=== PATIENT | female | born 1970 | race Caucasian/White ===

== ENCOUNTER 2018-09-24 09:18 | Day surgery (SDC) | payer OTHER, SELFPAY ==
[2018-09-24 09:46] VITALS: BP 150/89; PULSE 65; RESP 15; TEMP 37.3; O2SAT 95; BMI 35.5
[2018-09-24] MEDS: SODIUM CHLORIDE 0.9% 1,000 ML 100 ML IV (10:00)
--- NOTE | 2018-09-24 10:47 | PM.HP.1 ---
History of Present Illness Date Patient Seen: 09/24/18 Time Patient Seen: 10:47 Chief complaint: [id number] Colonoscopy Narrative: Wonderful and very healthy 48-year-old lady here for her 1st screening colonoscopy. She denies any problems or symptoms related to the function of her GI tract. She reports she needs a colonoscopy as part of the Health maintenance program. Patient History Social History household members: spouse Family & Social History Social History: household members spouse Meds Home Medications Medication Instructions Recorded Confirmed Type ascorbic acid-collagen [Collagen 4 tab PO DAILY 09/24/18 09/24/18 History Plus Vitamin C] biotin 5,000 mcg PO DAILY 09/24/18 09/24/18 History cetirizine 10 mg PO DAILY 09/24/18 09/24/18 History cholecalciferol (vitamin D3) 1,000 unit PO DAILY 09/24/18 09/24/18 History [Vitamin D3] melatonin 10 mg PO BEDTIME 09/24/18 09/24/18 History methylsulfonylmethane [MSM] 1,000 mg PO DAILY 09/24/18 09/24/18 History eikryhfz-dpy-qpkt-FA-lutein 1 tab PO DAILY 09/24/18 09/24/18 History [Centrum Silver Women] Allergies Allergy/AdvReac Type Severity Reaction Status Date / Time No Known Drug Allergies Allergy Verified 09/24/18 09:36 Review of Systems Review of Systems All systems reviewed & are unremarkable except as noted in HPI and below Exam Vital Signs (past 8 hours): - 09/24/18 09:46 Temperature 99.2 F Pulse Rate 65 Respiratory Rate 15 Blood Pressure 150/89 H Pulse Oximetry 95 Oxygen Delivery Method Room Air Narrative Exam Narrative: Very pleasant well-nourished well-developed lady in no distress HEENT: Normocephalic and atraumatic, pupils equal round reactive to light accommodation with anicteric sclera Lungs: Clear auscultation bilaterally Heart: Regular rate and rhythm without murmur rub or gallop Abdomen: Soft, nontender, active bowel sounds Extremities: Warm well-perfused without edema Assessment & Plan Assessment & Plan narrative: Pleasant and healthy lady here for her 1st screening colonoscopy. Her only risk today is BMI 35. We discussed the risks and benefits of the procedure today and she has expressed a desire to complete it today.
--- NOTE | 2018-09-24 10:49 | SUR.OPER ---
GLASSES , LABELED BAG, TO PACU WITH PATIENT.
[2018-09-24] MEDS: MIDAZOLAM 5 MG/5 ML VIAL IV (11:00)
[2018-09-24] MEDS: fentaNYL 250 MCG/5 ML INJ IV (11:01)
--- NOTE | 2018-09-24 11:09 | PM.OP.1 ---
Operative Date/Time/Diagnoses Date of procedure: 09/24/18 Time of procedure: 11:09 Pre-op diagnosis: Screening Post-op diagnosis: same Procedure & Clinicians Procedure: Colonoscopy to the cecum Same procedure as scheduled: Yes Indications: No prior colonoscopy Surgeon: Alayna Barger Anesthesia Type: Sedation (Versed 7 mg; fentanyl 200 mcg) Operative Notes Findings: 1. Excellent prep 2. No polyps or mass lesions 3. No AV malformations 4. Minimal diverticulosis limited the sigmoid region 5. Grade 1 internal hemorrhoids 6. Essentially normal colonoscopy for age Closure Type: not applicable Specimen(s): none sent Procedure in detail: After obtaining informed consent, the patient was brought to the GI suite and placed in the left lateral decubitus position on the examination table. After placement of appropriate monitors, the patient was given incremental doses of Versed and Fentanyl until an appropriate level of sedation was achieved. A time out was held per SCOAP protocol. A digital rectal examination was performed and did not reveal any masses or obstructing lesions. The colonoscope was gently passed into the patient's anus and the entire colon navigated to the level of the cecum with minimal difficulty. Once in the cecum, the scope was withdrawn being sure to go before and beyond all mucosal folds and prominences and get an excellent examination. The findings are noted above. At the level of the rectal vault, the scope was retroflexed and the internal anal canal was examined. The scope was straightened and air aspirated from the colon. The instrument was removed from the patient's body and the procedure was concluded. The patient was allowed to awaken from sedation without difficulty and taken to the post-anesthesia care unit in good condition. Total sedation time was 20 min Total withdrawal time was 9 min Complications: none Condition: stable Disposition: PACU Plan for aftercare: 1. Discharge to home 2. Plan for next colonoscopy in 10 years or as clinically indicated
[2018-09-24 11:11] VITALS: BP 116/71; PULSE 77; RESP 16; TEMP 36.5; O2SAT 96
[2018-09-24 11:16] VITALS: BP 112/75; PULSE 60; RESP 17; O2SAT 95
[2018-09-24 11:21] VITALS: BP 114/78; PULSE 77; RESP 17; TEMP 36.4; O2SAT 96
== END 2018-09-24 11:53 | disposition home or self-care (01) ==
PROVIDERS: PCP Family Medicine; Visit Provider Surgery
PROC: 0DJD8ZZ Inspection of Lower Intestinal Tract, Via Natural or Artificial Opening Endoscopic (ICD-10-PCS; CPT 45378; principal; 2018-09-24 10:45)
DX: Z12.11 Encounter for screening for malignant neoplasm of colon (principal); K57.30 Diverticulosis of large intestine without perforation or abscess without bleeding; K64.0 First degree hemorrhoids
CPT/HCPCS: 45378; 99152; J2250; J3010

== ENCOUNTER → 2019-09-23 16:36 | Outpatient (CLI) | payer OTHER, SELFPAY ==
--- NOTE | 2019-09-23 16:39 | DI.MG.S_ITS ---
BILATERAL DIGITAL SCREENING MAMMOGRAM 3D/2D WITH CAD: 09/23/2019 CLINICAL: Routine screening. Comparison is made to exams dated: 09/10/2016 mammogram, 09/17/2017 mammogram, and 09/21/2018 mammogram - [facility]. The tissue of both breasts is heterogeneously dense. This may lower the sensitivity of mammography. Current study was also evaluated with a Computer Aided Detection (CAD) system. No significant masses, calcifications, or other findings are seen in either breast. There has been no significant interval change. IMPRESSION: NEGATIVE There is no mammographic evidence of malignancy. A 1 year screening mammogram is recommended. This exam was interpreted at Station ID: [id number]. NOTE: For mammograms, a report in lay terms will be sent to the patient. Approximately 15% of breast malignancies will not be visualized mammographically. In the management of a palpable breast mass, a negative mammogram must not discourage biopsy of a clinically suspicious lesion. Electronically Signed By: Kvng ge/rhea:09/23/2019 17:47:30 letter sent: Normal Exam ACR BI-RADS Category 1: Negative [id number]
== END ==
PROVIDERS: PCP Family Medicine; Referring Provider Family Medicine; Visit Provider Family Medicine
DX: Z12.31 Encounter for screening mammogram for malignant neoplasm of breast (principal)
CPT/HCPCS: 77063; 77067

== ENCOUNTER → 2020-09-25 10:46 | Outpatient (CLI) | payer OTHER, SELFPAY ==
--- NOTE | 2020-09-25 | DI.MG.S_ITS ---
BILATERAL DIGITAL SCREENING MAMMOGRAM 3D/2D WITH CAD: 09/25/2020 CLINICAL: Routine screening. Comparison is made to exams dated: 09/23/2019 mammogram - [facility], 09/21/2018 mammogram, and 09/17/2017 mammogram - [facility]. The tissue of both breasts is heterogeneously dense. This may lower the sensitivity of mammography. Current study was also evaluated with a Computer Aided Detection (CAD) system. There are benign calcifications in both breasts. No significant masses, calcifications, or other findings are seen in either breast. There has been no significant interval change. IMPRESSION: BENIGN There is no mammographic evidence of malignancy. A 1 year screening mammogram is recommended. This exam was interpreted at Station ID: [id number]. NOTE: For mammograms, a report in lay terms will be sent to the patient. Approximately 15% of breast malignancies will not be visualized mammographically. In the management of a palpable breast mass, a negative mammogram must not discourage biopsy of a clinically suspicious lesion. Electronically Signed By: Gary monae/rhea:09/25/2020 13:25:32 letter sent: Normal Exam ACR BI-RADS Category 2: Benign Finding(s) 3342F
== END ==
PROVIDERS: PCP Family Medicine; Referring Provider Family Medicine; Visit Provider Family Medicine
DX: Z12.31 Encounter for screening mammogram for malignant neoplasm of breast (principal)
CPT/HCPCS: 77063; 77067

== ENCOUNTER 2020-10-16 09:45 | Outpatient (RCR) | payer OTHER, SELFPAY ==
--- NOTE | 2020-08-30 12:45 | PT.OPPOC ---
Physical, Occupational & Speech Therapy At [facility] Current Diagnoses Pain in unspecified hip (08/30/20) Pain in unspecified knee (08/30/20) Iliotibial band syndrome, unspecified leg (08/30/20) Lower abdominal pain, unspecified (08/30/20) Visit Care Team Role Provider Type Suzy Coughlin DO Attending Provider Non-Staff Primary Care Provider Referring Provider Specialty: Medical Address: [address] [place] [address], [id number] Email: Plan Of Care PT-OP-T Assessment and Plan Start: 08/30/20 16:33 Freq: Status: Active Protocol: Document 08/30/20 12:00 DCW (Rec: 08/31/20 09:41 DCW [id number]) Physical Therapy Assessment Rehab Potential Rehabilitation Potential Good Evaluation Complexity Number of Personal Factors/Comorbidities 1-2 Number of Body Systems Impaired 1-2 Clinical Presentation at Evaluation Stable Impairments Impairments Functional Activities, Functional Mobility,Pain,ROM, Soft Tissue Mobility,Tone Goals Three Impairment Severe tone through bilateral psoas Band Ripsaw Operator Goal (LTG) Pt to display at worst moderate tone bilaterally in hip flexors in order to improve lumbar positioning and ROM LTG Duration 10/28/20 Two Impairment Pt presents with right anterior pelvic rotation Custodial Goal (LTG) Pt to present with neutral pelvic rotation for three visits in a row LTG Duration 10/28/20 One Impairment Pt does not have an appropriate home exercise program Short Term Goal (STG) Pt to be independent and compliant with an appropriate HEP STG Duration 09/27/20 Assessment Summary Assessment Pt presents with signs and symptoms or increased muscle tone along her hips and low back resulting in an asymmetrical pelvis alignment and significant stiffness. Pt did not appear to have any positive tests relating to her spine or nerve entrapment, and just presents with moderate-severe tone throughout. Pt should benefit from skilled therapy focusing on flexibility and decreasing tone, which should lead to decreased pain, improved mobility, and increased activity tolerance. Pt already doing fairly well with stretching at home, however was educated on the importance of holding stretches long enough. Attempted to use MET to reposition pelvis, pt tolerated well, however with severe tone in psoas, will likely return to previous position by the time she returns for her next visit. Overall,pt demonstrates good LE strength in all planes. Physical Therapy Plan Frequency and Duration Frequency of Treatment 2x/Week Duration of Treatment Two months Plan of Care Start Date 08/30/20 Plan of Care End Date 10/28/20 Therapeutic Interventions Therapeutic Interventions Home Exercise Program,Joint Mobilizations,Manual Therapy, Patient/Caregiver Education, Self-Care/Home Management,Soft Tissue Mobilization, Therapeutic Activities, Therapeutic Exercises Modalities Cold Pack/Ice Massage,Electric Stimulation,Hot Packs, Ultrasound Next Visit Focus/Plan Next Note Type Treatment Note Next Visit Plan STM, MET, Flexibility Plan of Care Dates Plan of Care Start Date 08/30/20 Plan of Care End Date 10/28/20 Electronically Signed by: Jemal Pham, PT 08/31/20 0943 Please Sign and Return: I have reviewed this Plan of Care and certify that the skilled therapy services above are required to meet the patient?s needs. Physician Signature Date Printed Name and Credentials Clinical Instructor Signature Printed Name and Credentials
--- NOTE | 2020-08-30 12:45 | PT.OIE ---
Current Diagnoses Pain in unspecified hip (08/30/20) Pain in unspecified knee (08/30/20) Iliotibial band syndrome, unspecified leg (08/30/20) Lower abdominal pain, unspecified (08/30/20) Visit Care Team Role Provider Type Suzy Coughlin DO Attending Provider Non-Staff Primary Care Provider Referring Provider Specialty: Medical Address: [address] [place] [address], [id number] Email: Physical Therapy Initial Evaluation PT-OP-A Visit Information Start: 08/30/20 16:33 Freq: Status: Active Protocol: Document 08/30/20 12:00 DCW (Rec: 08/30/20 16:45 DCW [id number]) Out-Patient Physical Therapy Visit Information Visit Information Visit Type Initial Evaluation Visit Start Time 12:00 Visit Stop Time 12:45 Total Visit Minutes 45 Visit Number 1 Number of WILDLIFE TECHNICIAN Visits 0 Evaluation Information Evaluation Date 08/30/20 PT-OP-B Current Condition Start: 08/30/20 16:33 Freq: Status: Active Protocol: Document 08/30/20 12:00 DCW (Rec: 08/30/20 16:45 DCW [id number]) Current Condition History of Current Condition Onset Date Multi-year history Current Complaints Super tight in hips, low back. History of Current Condition Pt is a 53 year old female presenting with a long- standing history of low back and bilateral hip pain. Pt notes she does not recall any specific injury, just notes she has always been tight. Reports she already spends a lot of time throughout the day stretching her hamstrings, adductors, IT band, hip flexors, and piriformis, but admits she may not hold the stretch long enough. Pt reports she sees a chriopractor every other week, which occasionally helps some . Also notes her biggest complaint is a pinching in her anterior hip with hip flexion past 100?. Pt reports feeling much better when she is up moving around, but feels like everything tightens up when she stops. Also notes it feels like it is bruised when she palpates along her own ASIS. PT-OP-C Subjective Start: 08/30/20 16:33 Freq: Status: Active Protocol: Document 08/30/20 12:00 DCW (Rec: 08/30/20 17:57 DCW [id number]) OP-PT Subjective Patient Comments Patient Comments I've always been tight, I try to stretch out, but it just never seems to help. Patient Questionnaires Lower Extremity Functional Scale LEFS Score 54/80 = 67.5% OP-PT Pain Assessment Pain Assessment Grid Paper Pain Assessment Grid Completed Yes Location Bilateral Lateral Leg Intensity 4 Scale Used Numeric (0 - 10) Lower Back Intensity 5 Scale Used Numeric (0 - 10) PT-OP-F Manual Assessment Start: 08/30/20 16:33 Freq: Status: Active Protocol: Document 08/30/20 12:00 DCW (Rec: 08/30/20 17:57 DCW [id number]) Manual Assessments Soft Tissue Assessment Soft Tissue Mobility Assessment Severe tone with tenderness to palpation 3/4: Wincing and withdraw: bilateral Psoas Moderate tone with tenderness to palpation 3/4: Wincing and withdraw: bilateral ITB, adductors, hamstrings, piriformis. Joint Mobility Assessment Joint Mobility Assessment R anterior pelvic rotation PT-OP-K Range of Motion Start: 08/30/20 16:33 Freq: Status: Active Protocol: Document 08/30/20 12:00 DCW (Rec: 08/30/20 17:57 DCW [id number]) Lumbar Spine Range of Motion Lumbar Spine Active Degrees Testing Position Standing Flexion 28 Extension 5 ROM Limitations Soft Tissue Tightness,Muscle Tone PT-OP-L Special Tests Start: 08/30/20 16:33 Freq: Status: Active Protocol: Document 08/30/20 12:00 DCW (Rec: 08/30/20 17:57 DCW [id number]) Special Tests Lumbar Spine Special Tests Vertical Spine Loading Test Results Negative JAJA Test Results Negative Straight Leg Raise Test Results Negative Slump Test Results Hamstring tightness Manual Traction Test Results Pain relief Compression Test Results Negative A-P Shearing Test Results Negative PT-OP-M Strength Start: 08/30/20 16:33 Freq: Status: Active Protocol: Document 08/30/20 12:00 DCW (Rec: 08/30/20 17:57 DCW [id number]) Hip Strength Hip Manual Muscle Testing Bilateral Flexion (L2) 5 Normal Extension (S1) 5 Normal Abduction 5 Normal Adduction 5 Normal External Rotation 5 Normal Internal Rotation 5 Normal Knee Strength Knee Manual Muscle Testing Bilateral Flexion (S2) 5 Normal Extension (L3) 5 Normal PT-OP-Q Treatments Start: 08/30/20 16:33 Freq: Status: Active Protocol: Document 08/30/20 12:00 DCW (Rec: 08/31/20 09:42 DCW [id number]) Manual Therapy Treatment Joint Mobilizations 1 Joint Pelvic rotation Direction R posterior, L anterior shift Body Position Supine Comments MET - Resisted right LE extension, resisted left LE flexion PT-OP-T Assessment and Plan Start: 08/30/20 16:33 Freq: Status: Active Protocol: Document 08/30/20 12:00 DCW (Rec: 08/31/20 09:41 DCW [id number]) Physical Therapy Assessment Rehab Potential Rehabilitation Potential Good Evaluation Complexity Number of Personal Factors/Comorbidities 1-2 Number of Body Systems Impaired 1-2 Clinical Presentation at Evaluation Stable Impairments Impairments Functional Activities, Functional Mobility,Pain,ROM, Soft Tissue Mobility,Tone Goals Three Impairment Severe tone through bilateral psoas Skilled Nursing Goal (LTG) Pt to display at worst moderate tone bilaterally in hip flexors in order to improve lumbar positioning and ROM LTG Duration 10/28/20 Two Impairment Pt presents with right anterior pelvic rotation Skilled Nursing Goal (LTG) Pt to present with neutral pelvic rotation for three visits in a row LTG Duration 10/28/20 One Impairment Pt does not have an appropriate home exercise program Short Term Goal (STG) Pt to be independent and compliant with an appropriate HEP STG Duration 09/27/20 Assessment Summary Assessment Pt presents with signs and symptoms or increased muscle tone along her hips and low back resulting in an asymmetrical pelvis alignment and significant stiffness. Pt did not appear to have any positive tests relating to her spine or nerve entrapment, and just presents with moderate-severe tone throughout. Pt should benefit from skilled therapy focusing on flexibility and decreasing tone, which should lead to decreased pain, improved mobility, and increased activity tolerance. Pt already doing fairly well with stretching at home, however was educated on the importance of holding stretches long enough. Attempted to use MET to reposition pelvis, pt tolerated well, however with severe tone in psoas, will likely return to previous position by the time she returns for her next visit. Overall,pt demonstrates good LE strength in all planes. Physical Therapy Plan Frequency and Duration Frequency of Treatment 2x/Week Duration of Treatment Two months Plan of Care Start Date 08/30/20 Plan of Care End Date 10/28/20 Therapeutic Interventions Therapeutic Interventions Home Exercise Program,Joint Mobilizations,Manual Therapy, Patient/Caregiver Education, Self-Care/Home Management,Soft Tissue Mobilization, Therapeutic Activities, Therapeutic Exercises Modalities Cold Pack/Ice Massage,Electric Stimulation,Hot Packs, Ultrasound Next Visit Focus/Plan Next Note Type Treatment Note Next Visit Plan STM, MET, Flexibility
--- NOTE | 2020-09-01 10:38 | PT.OTN ---
Current Diagnoses Pain in unspecified hip (09/01/20) Pain in unspecified knee (09/01/20) Iliotibial band syndrome, unspecified leg (09/01/20) Lower abdominal pain, unspecified (09/01/20) Physical Therapy Treatment Note PT-OP-A Visit Information Start: 08/30/20 16:33 Freq: Status: Active Protocol: Document 09/01/20 09:48 SP (Rec: 09/01/20 10:53 SP [id number]) Out-Patient Physical Therapy Visit Information Visit Information Visit Type Treatment Note Visit Note YAKELIN Nicole attended, observation only during tx. Visit Start Time 09:48 Visit Stop Time 10:38 Total Visit Minutes 50 Visit Number 2 Number of GAS LINE INSTALLER Visits 1 PT-OP-B Current Condition Start: 08/30/20 16:33 Freq: Status: Active Protocol: Document 08/30/20 12:00 DCW (Rec: 08/30/20 16:45 DCW [id number]) Current Condition History of Current Condition Onset Date Multi-year history Current Complaints Super tight in hips, low back. History of Current Condition Pt is a 53 year old female presenting with a long- standing history of low back and bilateral hip pain. Pt notes she does not recall any specific injury, just notes she has always been tight. Reports she already spends a lot of time throughout the day stretching her hamstrings, adductors, IT band, hip flexors, and piriformis, but admits she may not hold the stretch long enough. Pt reports she sees a chriopractor every other week, which occasionally helps some . Also notes her biggest complaint is a pinching in her anterior hip with hip flexion past 100?. Pt reports feeling much better when she is up moving around, but feels like everything tightens up when she stops. Also notes it feels like it is bruised when she palpates along her own ASIS. PT-OP-C Subjective Start: 08/30/20 16:33 Freq: Status: Active Protocol: Document 09/01/20 09:48 SP (Rec: 09/01/20 10:53 SP [id number]) OP-PT Subjective Patient Comments Patient Comments Pt stated I was little sore from palpations after last tx but was helpful feedback for holding stretches longer. I feel need some deeper massage into ITB to get main tightness to deminish feels is the issue. PT-OP-F Manual Assessment Start: 08/30/20 16:33 Freq: Status: Active Protocol: Document 08/30/20 12:00 DCW (Rec: 08/30/20 17:57 DCW [id number]) Manual Assessments Soft Tissue Assessment Soft Tissue Mobility Assessment Severe tone with tenderness to palpation 3/4: Wincing and withdraw: bilateral Psoas Moderate tone with tenderness to palpation 3/4: Wincing and withdraw: bilateral ITB, adductors, hamstrings, piriformis. Joint Mobility Assessment Joint Mobility Assessment R anterior pelvic rotation PT-OP-K Range of Motion Start: 08/30/20 16:33 Freq: Status: Active Protocol: Document 08/30/20 12:00 DCW (Rec: 08/30/20 17:57 DCW [id number]) Lumbar Spine Range of Motion Lumbar Spine Active Degrees Testing Position Standing Flexion 28 Extension 5 ROM Limitations Soft Tissue Tightness,Muscle Tone PT-OP-L Special Tests Start: 08/30/20 16:33 Freq: Status: Active Protocol: Document 08/30/20 12:00 DCW (Rec: 08/30/20 17:57 DCW [id number]) Special Tests Lumbar Spine Special Tests Vertical Spine Loading Test Results Negative JAJA Test Results Negative Straight Leg Raise Test Results Negative Slump Test Results Hamstring tightness Manual Traction Test Results Pain relief Compression Test Results Negative A-P Shearing Test Results Negative PT-OP-M Strength Start: 08/30/20 16:33 Freq: Status: Active Protocol: Document 08/30/20 12:00 DCW (Rec: 08/30/20 17:57 DCW [id number]) Hip Strength Hip Manual Muscle Testing Bilateral Flexion (L2) 5 Normal Extension (S1) 5 Normal Abduction 5 Normal Adduction 5 Normal External Rotation 5 Normal Internal Rotation 5 Normal Knee Strength Knee Manual Muscle Testing Bilateral Flexion (S2) 5 Normal Extension (L3) 5 Normal PT-OP-Q Treatments Start: 08/30/20 16:33 Freq: Status: Active Protocol: Document 09/01/20 09:48 SP (Rec: 09/01/20 10:53 SP [id number]) Therapeutic Exercises Supine Exercises LE stretching Supine Exercise Name HS, ITB Equipment Used strap Reps/Minutes 45-60 sec x3-5 reps Other Exercises ball roll wall/ floor Other Exercise Name ITB, TFL, HS, calf (floor/ standing at wall) Side bilateral Reps/Minutes time to tolerance Comments good response foam rolling LEs Other Exercise Name Quad, TFL, HS, ITB Side bilateral Equipment Used foam roller on floor Reps/Minutes time tolerance Comments good response- cued proper trunk/ UE alignment form/ safety LB and wrists Manual Therapy Treatment Soft Tissue Mobilization ITB manual and instrument Body Location B ITB, adductor Mobilization Type Cross-Friction,Instrument Assisted,Strumming,Sustained Pressure Intensity/Depth Moderate Body Position Sidelying Comments manual and instruction on self application of STMs strumming and pin with MWM (adductors) for relief of excessive tightness. Cued awareness of tolerance, not over do and cause bruising for flexibility with verbal confirmation. Self-Care/Home Management Treatment Education Patient Education Home Exercise Program,Pain Management,Posture,Safety Other Education education proper form foamroll , ball roll LEs to decrease deep tightness, pain to improved flexibility and quality pain free mobillitiy. PT-OP-T Assessment and Plan Start: 08/30/20 16:33 Freq: Status: Active Protocol: Document 09/01/20 09:48 SP (Rec: 09/01/20 10:53 SP [id number]) Physical Therapy Assessment Goals Three Impairment Severe tone through bilateral psoas Compensation Business Partner Goal (LTG) Pt to display at worst moderate tone bilaterally in hip flexors in order to improve lumbar positioning and ROM LTG Duration 10/28/20 Two Impairment Pt presents with right anterior pelvic rotation Retirement Goal (LTG) Pt to present with neutral pelvic rotation for three visits in a row LTG Duration 10/28/20 One Impairment Pt does not have an appropriate home exercise program Short Term Goal (STG) Pt to be independent and compliant with an appropriate HEP STG Duration 09/27/20 Assessment Summary Assessment Tx focused on flexibility to decrease ITb and adductor pain having for years. Reviewed stretching and foam rolling has been doing on own, provided cuing for tolerance and not over do, then use of stick rolling, racquetball at wall/ floor needed and instrument use per pt request to ITB and self sustained compression to proximal adductors with hip IR/ ER and all good response was little sore but very helpful, what was hoping for. Physical Therapy Plan Frequency and Duration Frequency of Treatment 2x/Week Duration of Treatment Two months Plan of Care Start Date 08/30/20 Plan of Care End Date 10/28/20 Therapeutic Interventions Therapeutic Interventions Home Exercise Program,Joint Mobilizations,Manual Therapy, Patient/Caregiver Education, Self-Care/Home Management,Soft Tissue Mobilization, Therapeutic Activities, Therapeutic Exercises Modalities Cold Pack/Ice Massage,Electric Stimulation,Hot Packs, Ultrasound Next Visit Focus/Plan Next Note Type Treatment Note Next Visit Plan Assess response to manual, self STMs using foamroller, rolling stick, instrument and reviewed stretching holds for flexibility benefits and pain control looking for. Next tx assess if pelvic realignment beneficial and glut/ core are components missing? Continiue per PT POC: MET, Flexibility
--- NOTE | 2020-09-05 12:00 | PT.OTN ---
Current Diagnoses Pain in unspecified hip (09/05/20) Pain in unspecified knee (09/05/20) Iliotibial band syndrome, unspecified leg (09/05/20) Lower abdominal pain, unspecified (09/05/20) Physical Therapy Treatment Note PT-OP-A Visit Information Start: 08/30/20 16:33 Freq: Status: Active Protocol: Document 09/05/20 11:19 DCW (Rec: 09/05/20 12:00 DCW [id number]) Out-Patient Physical Therapy Visit Information Visit Information Visit Type Treatment Note Visit Start Time 11:19 Visit Stop Time 12:00 Total Visit Minutes 41 Visit Number 3 Number of SHOE REPAIR COBBLER Visits 0 Evaluation Information Evaluation Date 08/30/20 PT-OP-B Current Condition Start: 08/30/20 16:33 Freq: Status: Active Protocol: Document 08/30/20 12:00 DCW (Rec: 08/30/20 16:45 DCW [id number]) Current Condition History of Current Condition Onset Date Multi-year history Current Complaints Super tight in hips, low back. History of Current Condition Pt is a 53 year old female presenting with a long- standing history of low back and bilateral hip pain. Pt notes she does not recall any specific injury, just notes she has always been tight. Reports she already spends a lot of time throughout the day stretching her hamstrings, adductors, IT band, hip flexors, and piriformis, but admits she may not hold the stretch long enough. Pt reports she sees a chriopractor every other week, which occasionally helps some . Also notes her biggest complaint is a pinching in her anterior hip with hip flexion past 100?. Pt reports feeling much better when she is up moving around, but feels like everything tightens up when she stops. Also notes it feels like it is bruised when she palpates along her own ASIS. PT-OP-C Subjective Start: 08/30/20 16:33 Freq: Status: Active Protocol: Document 09/05/20 11:19 DCW (Rec: 09/05/20 12:00 DCW [id number]) OP-PT Subjective Patient Comments Patient Comments Pt feeling pretty good, I was working on my stretching this morning. Note she was a little tender after her appointment Friday. PT-OP-F Manual Assessment Start: 08/30/20 16:33 Freq: Status: Active Protocol: Document 08/30/20 12:00 DCW (Rec: 08/30/20 17:57 DCW [id number]) Manual Assessments Soft Tissue Assessment Soft Tissue Mobility Assessment Severe tone with tenderness to palpation 3/4: Wincing and withdraw: bilateral Psoas Moderate tone with tenderness to palpation 3/4: Wincing and withdraw: bilateral ITB, adductors, hamstrings, piriformis. Joint Mobility Assessment Joint Mobility Assessment R anterior pelvic rotation PT-OP-K Range of Motion Start: 08/30/20 16:33 Freq: Status: Active Protocol: Document 08/30/20 12:00 DCW (Rec: 08/30/20 17:57 DCW [id number]) Lumbar Spine Range of Motion Lumbar Spine Active Degrees Testing Position Standing Flexion 28 Extension 5 ROM Limitations Soft Tissue Tightness,Muscle Tone PT-OP-L Special Tests Start: 08/30/20 16:33 Freq: Status: Active Protocol: Document 08/30/20 12:00 DCW (Rec: 08/30/20 17:57 DCW [id number]) Special Tests Lumbar Spine Special Tests Vertical Spine Loading Test Results Negative JAJA Test Results Negative Straight Leg Raise Test Results Negative Slump Test Results Hamstring tightness Manual Traction Test Results Pain relief Compression Test Results Negative A-P Shearing Test Results Negative PT-OP-M Strength Start: 08/30/20 16:33 Freq: Status: Active Protocol: Document 08/30/20 12:00 DCW (Rec: 08/30/20 17:57 DCW [id number]) Hip Strength Hip Manual Muscle Testing Bilateral Flexion (L2) 5 Normal Extension (S1) 5 Normal Abduction 5 Normal Adduction 5 Normal External Rotation 5 Normal Internal Rotation 5 Normal Knee Strength Knee Manual Muscle Testing Bilateral Flexion (S2) 5 Normal Extension (L3) 5 Normal PT-OP-Q Treatments Start: 08/30/20 16:33 Freq: Status: Active Protocol: Document 09/05/20 11:19 DCW (Rec: 09/05/20 12:00 DCW [id number]) Therapeutic Exercises Supine Exercises LE stretching Supine Exercise Name HS, ITB, Piriformis Reps/Minutes 45-60 sec x3-5 reps Comments Manual Manual Therapy Treatment Soft Tissue Mobilization 1 Body Location B Psoas Mobilization Type Cross-Friction,Strumming, Sustained Pressure ITB manual and instrument Body Location B ITB, adductor Mobilization Type Cross-Friction,Strumming, Sustained Pressure Intensity/Depth Moderate Body Position Supine PT-OP-T Assessment and Plan Start: 08/30/20 16:33 Freq: Status: Active Protocol: Document 09/05/20 11:19 DCW (Rec: 09/05/20 12:00 DCW [id number]) Physical Therapy Assessment Impairments Impairments Functional Activities, Functional Mobility,Pain,ROM, Soft Tissue Mobility,Tone Goals Three Impairment Severe tone through bilateral psoas Aircraft Electrician Goal (LTG) Pt to display at worst moderate tone bilaterally in hip flexors in order to improve lumbar positioning and ROM LTG Duration 10/28/20 Two Impairment Pt presents with right anterior pelvic rotation Aircraft Electrician Goal (LTG) Pt to present with neutral pelvic rotation for three visits in a row LTG Duration 10/28/20 One Impairment Pt does not have an appropriate home exercise program Short Term Goal (STG) Pt to be independent and compliant with an appropriate HEP STG Duration 09/27/20 Assessment Summary Assessment Pt appears to be tolerating treatment well, working a lot on stretching and rolling at home, which pt notes has been helping her stiffness. Physical Therapy Plan Frequency and Duration Frequency of Treatment 2x/Week Duration of Treatment Two months Plan of Care Start Date 08/30/20 Plan of Care End Date 10/28/20 Therapeutic Interventions Therapeutic Interventions Home Exercise Program,Joint Mobilizations,Manual Therapy, Patient/Caregiver Education, Self-Care/Home Management,Soft Tissue Mobilization, Therapeutic Activities, Therapeutic Exercises Modalities Cold Pack/Ice Massage,Electric Stimulation,Hot Packs, Ultrasound Next Visit Focus/Plan Next Note Type Treatment Note Next Visit Plan Assess response to manual, self STMs using foam roller, rolling stick, instrument and reviewed stretching holds for flexibility benefits and pain control looking for. Next tx assess if pelvic realignment beneficial and glut/ core are components missing? Continiue per PT POC: MET, Flexibility
--- NOTE | 2020-09-08 12:02 | PT.OTN ---
Current Diagnoses Pain in unspecified hip (09/08/20) Pain in unspecified knee (09/08/20) Iliotibial band syndrome, unspecified leg (09/08/20) Lower abdominal pain, unspecified (09/08/20) Physical Therapy Treatment Note PT-OP-A Visit Information Start: 08/30/20 16:33 Freq: Status: Active Protocol: Document 09/08/20 11:19 DCW (Rec: 09/08/20 12:02 DCW [id number]) Out-Patient Physical Therapy Visit Information Visit Information Visit Type Treatment Note Visit Start Time 11:19 Visit Stop Time 12:00 Total Visit Minutes 41 Visit Number 4 Number of MEDICAL TRANSLATOR Visits 0 Evaluation Information Evaluation Date 08/30/20 PT-OP-B Current Condition Start: 08/30/20 16:33 Freq: Status: Active Protocol: Document 08/30/20 12:00 DCW (Rec: 08/30/20 16:45 DCW [id number]) Current Condition History of Current Condition Onset Date Multi-year history Current Complaints Super tight in hips, low back. History of Current Condition Pt is a 53 year old female presenting with a long- standing history of low back and bilateral hip pain. Pt notes she does not recall any specific injury, just notes she has always been tight. Reports she already spends a lot of time throughout the day stretching her hamstrings, adductors, IT band, hip flexors, and piriformis, but admits she may not hold the stretch long enough. Pt reports she sees a chriopractor every other week, which occasionally helps some . Also notes her biggest complaint is a pinching in her anterior hip with hip flexion past 100?. Pt reports feeling much better when she is up moving around, but feels like everything tightens up when she stops. Also notes it feels like it is bruised when she palpates along her own ASIS. PT-OP-C Subjective Start: 08/30/20 16:33 Freq: Status: Active Protocol: Document 09/08/20 11:19 DCW (Rec: 09/08/20 12:02 DCW [id number]) OP-PT Subjective Patient Comments Patient Comments Pt reports she is feeling pretty okay. Having success following her HEP, doing rolling independently. PT-OP-F Manual Assessment Start: 08/30/20 16:33 Freq: Status: Active Protocol: Document 08/30/20 12:00 DCW (Rec: 08/30/20 17:57 DCW [id number]) Manual Assessments Soft Tissue Assessment Soft Tissue Mobility Assessment Severe tone with tenderness to palpation 3/4: Wincing and withdraw: bilateral Psoas Moderate tone with tenderness to palpation 3/4: Wincing and withdraw: bilateral ITB, adductors, hamstrings, piriformis. Joint Mobility Assessment Joint Mobility Assessment R anterior pelvic rotation PT-OP-K Range of Motion Start: 08/30/20 16:33 Freq: Status: Active Protocol: Document 08/30/20 12:00 DCW (Rec: 08/30/20 17:57 DCW [id number]) Lumbar Spine Range of Motion Lumbar Spine Active Degrees Testing Position Standing Flexion 28 Extension 5 ROM Limitations Soft Tissue Tightness,Muscle Tone PT-OP-L Special Tests Start: 08/30/20 16:33 Freq: Status: Active Protocol: Document 08/30/20 12:00 DCW (Rec: 08/30/20 17:57 DCW [id number]) Special Tests Lumbar Spine Special Tests Vertical Spine Loading Test Results Negative JAJA Test Results Negative Straight Leg Raise Test Results Negative Slump Test Results Hamstring tightness Manual Traction Test Results Pain relief Compression Test Results Negative A-P Shearing Test Results Negative PT-OP-M Strength Start: 08/30/20 16:33 Freq: Status: Active Protocol: Document 08/30/20 12:00 DCW (Rec: 08/30/20 17:57 DCW [id number]) Hip Strength Hip Manual Muscle Testing Bilateral Flexion (L2) 5 Normal Extension (S1) 5 Normal Abduction 5 Normal Adduction 5 Normal External Rotation 5 Normal Internal Rotation 5 Normal Knee Strength Knee Manual Muscle Testing Bilateral Flexion (S2) 5 Normal Extension (L3) 5 Normal PT-OP-Q Treatments Start: 08/30/20 16:33 Freq: Status: Active Protocol: Document 09/08/20 11:19 DCW (Rec: 09/08/20 12:02 DCW [id number]) Cardio Equipment Recumbent Elliptical ([employer]) Duration (Minutes) 5 Resistance 4 Seat Position 5 Therapeutic Exercises Supine Exercises 3 Supine Exercise Name One leg press/hold Reps/Minutes 3 hold x5 2 Supine Exercise Name One leg pelvic lift Reps/Minutes 3 hold x5 1 Supine Exercise Name Hooklying ball squeeze Side bilateral Reps/Minutes 3 hold x10 LE stretching Supine Exercise Name HS, ITB, Piriformis Reps/Minutes 45-60 sec x3-5 reps Comments Manual Manual Therapy Treatment Soft Tissue Mobilization 1 Body Location B Psoas Mobilization Type Cross-Friction,Strumming, Sustained Pressure ITB manual and instrument Body Location B ITB, adductor Mobilization Type Cross-Friction,Strumming, Sustained Pressure Intensity/Depth Moderate Body Position Supine PT-OP-T Assessment and Plan Start: 08/30/20 16:33 Freq: Status: Active Protocol: Document 09/08/20 11:19 DCW (Rec: 09/08/20 12:02 DCW [id number]) Physical Therapy Assessment Impairments Impairments Functional Activities, Functional Mobility,Pain,ROM, Soft Tissue Mobility,Tone Goals Three Impairment Severe tone through bilateral psoas Group Home Goal (LTG) Pt to display at worst moderate tone bilaterally in hip flexors in order to improve lumbar positioning and ROM LTG Duration 10/28/20 Two Impairment Pt presents with right anterior pelvic rotation Group Home Goal (LTG) Pt to present with neutral pelvic rotation for three visits in a row LTG Duration 10/28/20 One Impairment Pt does not have an appropriate home exercise program Short Term Goal (STG) Pt to be independent and compliant with an appropriate HEP STG Duration 09/27/20 Assessment Summary Assessment Pt responding appropriately to treatment, less overall tone, showing improved mobility. Physical Therapy Plan Frequency and Duration Frequency of Treatment 2x/Week Duration of Treatment Two months Plan of Care Start Date 08/30/20 Plan of Care End Date 10/28/20 Therapeutic Interventions Therapeutic Interventions Home Exercise Program,Joint Mobilizations,Manual Therapy, Patient/Caregiver Education, Self-Care/Home Management,Soft Tissue Mobilization, Therapeutic Activities, Therapeutic Exercises Modalities Cold Pack/Ice Massage,Electric Stimulation,Hot Packs, Ultrasound Next Visit Focus/Plan Next Note Type Treatment Note Next Visit Plan Assess response to manual, self STMs using foamroller, rolling stick, instrument and reviewed stretching holds for flexibility benefits and pain control looking for. Next tx assess if pelvic realignment beneficial and glut/ core are components missing? Continiue per PT POC: MET, Flexibility
--- NOTE | 2020-09-13 10:31 | PT.OTN ---
Current Diagnoses Pain in unspecified hip (09/13/20) Pain in unspecified knee (09/13/20) Iliotibial band syndrome, unspecified leg (09/13/20) Lower abdominal pain, unspecified (09/13/20) Physical Therapy Treatment Note PT-OP-A Visit Information Start: 08/30/20 16:33 Freq: Status: Active Protocol: Document 09/13/20 09:45 DCW (Rec: 09/13/20 10:31 DCW [id number]) Out-Patient Physical Therapy Visit Information Visit Information Visit Type Treatment Note Visit Start Time 09:45 Visit Stop Time 10:30 Total Visit Minutes 45 Visit Number 5 Number of WOODS MANAGER Visits 0 Evaluation Information Evaluation Date 08/30/20 PT-OP-B Current Condition Start: 08/30/20 16:33 Freq: Status: Active Protocol: Document 08/30/20 12:00 DCW (Rec: 08/30/20 16:45 DCW [id number]) Current Condition History of Current Condition Onset Date Multi-year history Current Complaints Super tight in hips, low back. History of Current Condition Pt is a 53 year old female presenting with a long- standing history of low back and bilateral hip pain. Pt notes she does not recall any specific injury, just notes she has always been tight. Reports she already spends a lot of time throughout the day stretching her hamstrings, adductors, IT band, hip flexors, and piriformis, but admits she may not hold the stretch long enough. Pt reports she sees a chriopractor every other week, which occasionally helps some . Also notes her biggest complaint is a pinching in her anterior hip with hip flexion past 100?. Pt reports feeling much better when she is up moving around, but feels like everything tightens up when she stops. Also notes it feels like it is bruised when she palpates along her own ASIS. PT-OP-C Subjective Start: 08/30/20 16:33 Freq: Status: Active Protocol: Document 09/13/20 09:45 DCW (Rec: 09/13/20 10:31 DCW [id number]) OP-PT Subjective Patient Comments Patient Comments Pt notes she has been having increased medial knee pain recently, notes it is a long- standing issue, but it seems to be worse at the moment. PT-OP-F Manual Assessment Start: 08/30/20 16:33 Freq: Status: Active Protocol: Document 08/30/20 12:00 DCW (Rec: 08/30/20 17:57 DCW [id number]) Manual Assessments Soft Tissue Assessment Soft Tissue Mobility Assessment Severe tone with tenderness to palpation 3/4: Wincing and withdraw: bilateral Psoas Moderate tone with tenderness to palpation 3/4: Wincing and withdraw: bilateral ITB, adductors, hamstrings, piriformis. Joint Mobility Assessment Joint Mobility Assessment R anterior pelvic rotation PT-OP-K Range of Motion Start: 08/30/20 16:33 Freq: Status: Active Protocol: Document 08/30/20 12:00 DCW (Rec: 08/30/20 17:57 DCW [id number]) Lumbar Spine Range of Motion Lumbar Spine Active Degrees Testing Position Standing Flexion 28 Extension 5 ROM Limitations Soft Tissue Tightness,Muscle Tone PT-OP-L Special Tests Start: 08/30/20 16:33 Freq: Status: Active Protocol: Document 08/30/20 12:00 DCW (Rec: 08/30/20 17:57 DCW [id number]) Special Tests Lumbar Spine Special Tests Vertical Spine Loading Test Results Negative JAJA Test Results Negative Straight Leg Raise Test Results Negative Slump Test Results Hamstring tightness Manual Traction Test Results Pain relief Compression Test Results Negative A-P Shearing Test Results Negative PT-OP-M Strength Start: 08/30/20 16:33 Freq: Status: Active Protocol: Document 08/30/20 12:00 DCW (Rec: 08/30/20 17:57 DCW [id number]) Hip Strength Hip Manual Muscle Testing Bilateral Flexion (L2) 5 Normal Extension (S1) 5 Normal Abduction 5 Normal Adduction 5 Normal External Rotation 5 Normal Internal Rotation 5 Normal Knee Strength Knee Manual Muscle Testing Bilateral Flexion (S2) 5 Normal Extension (L3) 5 Normal PT-OP-Q Treatments Start: 08/30/20 16:33 Freq: Status: Active Protocol: Document 09/13/20 09:45 DCW (Rec: 09/13/20 10:31 DCW [id number]) Cardio Equipment Recumbent Stepper ([employer]i-[employer]) Duration (Minutes) 5 Resistance 3 Seat Position 7 Therapeutic Exercises Supine Exercises LE stretching Supine Exercise Name HS, ITB, Piriformis Reps/Minutes 45-60 sec x3-5 reps Comments Manual Manual Therapy Treatment Soft Tissue Mobilization 1 Body Location B Psoas Mobilization Type Cross-Friction,Strumming, Sustained Pressure ITB manual and instrument Body Location B ITB, adductor Mobilization Type Cross-Friction,Strumming, Sustained Pressure Intensity/Depth Moderate Body Position Supine Joint Mobilizations 2 Joint R Hip mobilization /c strap Direction Lateral Grade III Body Position Hooklying 1 Joint Pelvic rotation Direction R posterior, L anterior shift Body Position Supine Comments MET - Resisted right LE extension, resisted left LE flexion PT-OP-T Assessment and Plan Start: 08/30/20 16:33 Freq: Status: Active Protocol: Document 09/13/20 09:45 DCW (Rec: 09/13/20 10:31 DCW [id number]) Physical Therapy Assessment Impairments Impairments Functional Activities, Functional Mobility,Pain,ROM, Soft Tissue Mobility,Tone Goals Three Impairment Severe tone through bilateral psoas Senior Living Goal (LTG) Pt to display at worst moderate tone bilaterally in hip flexors in order to improve lumbar positioning and ROM LTG Duration 10/28/20 Two Impairment Pt presents with right anterior pelvic rotation Commercial Intelligence Manager Goal (LTG) Pt to present with neutral pelvic rotation for three visits in a row LTG Duration 10/28/20 One Impairment Pt does not have an appropriate home exercise program Short Term Goal (STG) Pt to be independent and compliant with an appropriate HEP STG Duration 09/27/20 Assessment Summary Assessment Pt tolerating treatment very well, eliminated complaint of pinching in anterior hip with lateral distraction. Physical Therapy Plan Frequency and Duration Frequency of Treatment 2x/Week Duration of Treatment Two months Plan of Care Start Date 08/30/20 Plan of Care End Date 10/28/20 Therapeutic Interventions Therapeutic Interventions Home Exercise Program,Joint Mobilizations,Manual Therapy, Patient/Caregiver Education, Self-Care/Home Management,Soft Tissue Mobilization, Therapeutic Activities, Therapeutic Exercises Modalities Cold Pack/Ice Massage,Electric Stimulation,Hot Packs, Ultrasound Next Visit Focus/Plan Next Note Type Treatment Note Next Visit Plan Assess response to STM, review stretching holds for flexibility as needed. Continiue per PT POC: MET, Flexibility
--- NOTE | 2020-09-15 12:00 | PT.OTN ---
Current Diagnoses Pain in unspecified hip (09/15/20) Pain in unspecified knee (09/15/20) Iliotibial band syndrome, unspecified leg (09/15/20) Lower abdominal pain, unspecified (09/15/20) Physical Therapy Treatment Note PT-OP-A Visit Information Start: 08/30/20 16:33 Freq: Status: Active Protocol: Document 09/15/20 11:15 DCW (Rec: 09/15/20 12:00 DCW [id number]) Out-Patient Physical Therapy Visit Information Visit Information Visit Type Treatment Note Visit Start Time 11:15 Visit Stop Time 12:00 Total Visit Minutes 45 Visit Number 6 Number of PIN PULLER Visits 0 Evaluation Information Evaluation Date 08/30/20 PT-OP-B Current Condition Start: 08/30/20 16:33 Freq: Status: Active Protocol: Document 08/30/20 12:00 DCW (Rec: 08/30/20 16:45 DCW [id number]) Current Condition History of Current Condition Onset Date Multi-year history Current Complaints Super tight in hips, low back. History of Current Condition Pt is a 53 year old female presenting with a long- standing history of low back and bilateral hip pain. Pt notes she does not recall any specific injury, just notes she has always been tight. Reports she already spends a lot of time throughout the day stretching her hamstrings, adductors, IT band, hip flexors, and piriformis, but admits she may not hold the stretch long enough. Pt reports she sees a chriopractor every other week, which occasionally helps some . Also notes her biggest complaint is a pinching in her anterior hip with hip flexion past 100?. Pt reports feeling much better when she is up moving around, but feels like everything tightens up when she stops. Also notes it feels like it is bruised when she palpates along her own ASIS. PT-OP-C Subjective Start: 08/30/20 16:33 Freq: Status: Active Protocol: Document 09/15/20 11:15 DCW (Rec: 09/15/20 12:00 DCW [id number]) OP-PT Subjective Patient Comments Patient Comments Pt feels like she may be getting at least some of her symptoms from walking her foster dog, who is not great on a leash yet and ends up pulling a lot. PT-OP-F Manual Assessment Start: 08/30/20 16:33 Freq: Status: Active Protocol: Document 08/30/20 12:00 DCW (Rec: 08/30/20 17:57 DCW [id number]) Manual Assessments Soft Tissue Assessment Soft Tissue Mobility Assessment Severe tone with tenderness to palpation 3/4: Wincing and withdraw: bilateral Psoas Moderate tone with tenderness to palpation 3/4: Wincing and withdraw: bilateral ITB, adductors, hamstrings, piriformis. Joint Mobility Assessment Joint Mobility Assessment R anterior pelvic rotation PT-OP-K Range of Motion Start: 08/30/20 16:33 Freq: Status: Active Protocol: Document 08/30/20 12:00 DCW (Rec: 08/30/20 17:57 DCW [id number]) Lumbar Spine Range of Motion Lumbar Spine Active Degrees Testing Position Standing Flexion 28 Extension 5 ROM Limitations Soft Tissue Tightness,Muscle Tone PT-OP-L Special Tests Start: 08/30/20 16:33 Freq: Status: Active Protocol: Document 08/30/20 12:00 DCW (Rec: 08/30/20 17:57 DCW [id number]) Special Tests Lumbar Spine Special Tests Vertical Spine Loading Test Results Negative JAJA Test Results Negative Straight Leg Raise Test Results Negative Slump Test Results Hamstring tightness Manual Traction Test Results Pain relief Compression Test Results Negative A-P Shearing Test Results Negative PT-OP-M Strength Start: 08/30/20 16:33 Freq: Status: Active Protocol: Document 08/30/20 12:00 DCW (Rec: 08/30/20 17:57 DCW [id number]) Hip Strength Hip Manual Muscle Testing Bilateral Flexion (L2) 5 Normal Extension (S1) 5 Normal Abduction 5 Normal Adduction 5 Normal External Rotation 5 Normal Internal Rotation 5 Normal Knee Strength Knee Manual Muscle Testing Bilateral Flexion (S2) 5 Normal Extension (L3) 5 Normal PT-OP-Q Treatments Start: 08/30/20 16:33 Freq: Status: Active Protocol: Document 09/15/20 11:15 DCW (Rec: 09/15/20 12:00 DCW [id number]) Cardio Equipment Recumbent Elliptical ([employer]) Duration (Minutes) 5 Resistance 4 Seat Position 5 Gym Equipment Shuttle Recovery Unilateral Squats Details VCs for TrA contraction Resistance 75# Shuttle Recovery Platform Stable Bilateral Squats Details VCs for TrA contraction Resistance 125# Shuttle Recovery Platform Stable Therapeutic Exercises Supine Exercises LE stretching Supine Exercise Name HS, ITB, Piriformis Reps/Minutes 45-60 sec x3-5 reps Comments Manual Manual Therapy Treatment Soft Tissue Mobilization 1 Body Location B Psoas Mobilization Type Cross-Friction,Strumming, Sustained Pressure ITB manual and instrument Body Location B ITB, adductor Mobilization Type Cross-Friction,Strumming, Sustained Pressure Intensity/Depth Moderate Body Position Supine Joint Mobilizations 2 Joint R Hip mobilization /c strap Direction Lateral Grade III Body Position Hooklying PT-OP-T Assessment and Plan Start: 08/30/20 16:33 Freq: Status: Active Protocol: Document 09/15/20 11:15 DCW (Rec: 09/15/20 12:00 DCW [id number]) Physical Therapy Assessment Impairments Impairments Functional Activities, Functional Mobility,Pain,ROM, Soft Tissue Mobility,Tone Goals Three Impairment Severe tone through bilateral psoas Supervisor Riveting Goal (LTG) Pt to display at worst moderate tone bilaterally in hip flexors in order to improve lumbar positioning and ROM LTG Duration 10/28/20 Two Impairment Pt presents with right anterior pelvic rotation Snf Goal (LTG) Pt to present with neutral pelvic rotation for three visits in a row LTG Duration 10/28/20 One Impairment Pt does not have an appropriate home exercise program Short Term Goal (STG) Pt to be independent and compliant with an appropriate HEP STG Duration 09/27/20 Assessment Summary Assessment Pt presenting with significant decline in overall tone, improved mobility today. Pt reported feeling more optimistic about her pain levels and level of function. Physical Therapy Plan Frequency and Duration Frequency of Treatment 2x/Week Duration of Treatment Two months Plan of Care Start Date 08/30/20 Plan of Care End Date 10/28/20 Therapeutic Interventions Therapeutic Interventions Home Exercise Program,Joint Mobilizations,Manual Therapy, Patient/Caregiver Education, Self-Care/Home Management,Soft Tissue Mobilization, Therapeutic Activities, Therapeutic Exercises Modalities Cold Pack/Ice Massage,Electric Stimulation,Hot Packs, Ultrasound Next Visit Focus/Plan Next Note Type Treatment Note Next Visit Plan Assess response to STM, review stretching holds for flexibility as needed. Continiue per PT POC: MET, Flexibility
--- NOTE | 2020-09-25 16:46 | PT.OTN ---
Current Diagnoses Pain in unspecified hip (09/25/20) Pain in unspecified knee (09/25/20) Iliotibial band syndrome, unspecified leg (09/25/20) Lower abdominal pain, unspecified (09/25/20) Physical Therapy Treatment Note PT-OP-A Visit Information Start: 08/30/20 16:33 Freq: Status: Active Protocol: Document 09/25/20 16:00 DCW (Rec: 09/25/20 16:45 DCW [id number]) Out-Patient Physical Therapy Visit Information Visit Information Visit Type Treatment Note Visit Start Time 16:00 Visit Stop Time 16:45 Total Visit Minutes 45 Visit Number 7 Number of POLYSTYRENE BEAD MOLDER Visits 0 Evaluation Information Evaluation Date 08/30/20 PT-OP-B Current Condition Start: 08/30/20 16:33 Freq: Status: Active Protocol: Document 08/30/20 12:00 DCW (Rec: 08/30/20 16:45 DCW [id number]) Current Condition History of Current Condition Onset Date Multi-year history Current Complaints Super tight in hips, low back. History of Current Condition Pt is a 53 year old female presenting with a long- standing history of low back and bilateral hip pain. Pt notes she does not recall any specific injury, just notes she has always been tight. Reports she already spends a lot of time throughout the day stretching her hamstrings, adductors, IT band, hip flexors, and piriformis, but admits she may not hold the stretch long enough. Pt reports she sees a chriopractor every other week, which occasionally helps some . Also notes her biggest complaint is a pinching in her anterior hip with hip flexion past 100?. Pt reports feeling much better when she is up moving around, but feels like everything tightens up when she stops. Also notes it feels like it is bruised when she palpates along her own ASIS. PT-OP-C Subjective Start: 08/30/20 16:33 Freq: Status: Active Protocol: Document 09/25/20 16:00 DCW (Rec: 09/25/20 16:45 DCW [id number]) OP-PT Subjective Patient Comments Patient Comments I'm doing good. I had a good week last week. Notes she walked her dog right before coming to therapy today. PT-OP-F Manual Assessment Start: 08/30/20 16:33 Freq: Status: Active Protocol: Document 08/30/20 12:00 DCW (Rec: 08/30/20 17:57 DCW [id number]) Manual Assessments Soft Tissue Assessment Soft Tissue Mobility Assessment Severe tone with tenderness to palpation 3/4: Wincing and withdraw: bilateral Psoas Moderate tone with tenderness to palpation 3/4: Wincing and withdraw: bilateral ITB, adductors, hamstrings, piriformis. Joint Mobility Assessment Joint Mobility Assessment R anterior pelvic rotation PT-OP-K Range of Motion Start: 08/30/20 16:33 Freq: Status: Active Protocol: Document 08/30/20 12:00 DCW (Rec: 08/30/20 17:57 DCW [id number]) Lumbar Spine Range of Motion Lumbar Spine Active Degrees Testing Position Standing Flexion 28 Extension 5 ROM Limitations Soft Tissue Tightness,Muscle Tone PT-OP-L Special Tests Start: 08/30/20 16:33 Freq: Status: Active Protocol: Document 08/30/20 12:00 DCW (Rec: 08/30/20 17:57 DCW [id number]) Special Tests Lumbar Spine Special Tests Vertical Spine Loading Test Results Negative JAJA Test Results Negative Straight Leg Raise Test Results Negative Slump Test Results Hamstring tightness Manual Traction Test Results Pain relief Compression Test Results Negative A-P Shearing Test Results Negative PT-OP-M Strength Start: 08/30/20 16:33 Freq: Status: Active Protocol: Document 08/30/20 12:00 DCW (Rec: 08/30/20 17:57 DCW [id number]) Hip Strength Hip Manual Muscle Testing Bilateral Flexion (L2) 5 Normal Extension (S1) 5 Normal Abduction 5 Normal Adduction 5 Normal External Rotation 5 Normal Internal Rotation 5 Normal Knee Strength Knee Manual Muscle Testing Bilateral Flexion (S2) 5 Normal Extension (L3) 5 Normal PT-OP-Q Treatments Start: 08/30/20 16:33 Freq: Status: Active Protocol: Document 09/25/20 16:00 DCW (Rec: 09/25/20 16:45 DCW [id number]) Cardio Equipment Recumbent Stepper (Sci-Fit) Duration (Minutes) 5 Resistance 3 Seat Position 8 Gym Equipment Shuttle Recovery Unilateral Squats Details VCs for TrA contraction Resistance 75# Shuttle Recovery Platform Stable Bilateral Squats Details VCs for TrA contraction Resistance 125# Shuttle Recovery Platform Stable Therapeutic Exercises Supine Exercises LE stretching Supine Exercise Name HS, ITB, Piriformis Reps/Minutes 45-60 sec x3-5 reps Comments Manual Manual Therapy Treatment Soft Tissue Mobilization 1 Body Location B Psoas Mobilization Type Cross-Friction,Strumming, Sustained Pressure ITB manual and instrument Body Location B ITB, adductor Mobilization Type Cross-Friction,Strumming, Sustained Pressure Intensity/Depth Moderate Body Position Supine PT-OP-T Assessment and Plan Start: 08/30/20 16:33 Freq: Status: Active Protocol: Document 09/25/20 16:00 DCW (Rec: 09/25/20 16:45 DCW [id number]) Physical Therapy Assessment Impairments Impairments Functional Activities, Functional Mobility,Pain,ROM, Soft Tissue Mobility,Tone Goals Three Impairment Severe tone through bilateral psoas Nursing Home Goal (LTG) Pt to display at worst moderate tone bilaterally in hip flexors in order to improve lumbar positioning and ROM LTG Duration 10/28/20 Two Impairment Pt presents with right anterior pelvic rotation Assistant Mechanic Goal (LTG) Pt to present with neutral pelvic rotation for three visits in a row LTG Duration 10/28/20 One Impairment Pt does not have an appropriate home exercise program Short Term Goal (STG) Pt to be independent and compliant with an appropriate HEP STG Duration 09/27/20 Assessment Summary Assessment Pt much more mobile today, no pinching in right hip, pelvis is aligned properly, even with her week off from therapy. Physical Therapy Plan Frequency and Duration Frequency of Treatment 2x/Week Duration of Treatment Two months Plan of Care Start Date 08/30/20 Plan of Care End Date 10/28/20 Therapeutic Interventions Therapeutic Interventions Home Exercise Program,Joint Mobilizations,Manual Therapy, Patient/Caregiver Education, Self-Care/Home Management,Soft Tissue Mobilization, Therapeutic Activities, Therapeutic Exercises Modalities Cold Pack/Ice Massage,Electric Stimulation,Hot Packs, Ultrasound Next Visit Focus/Plan Next Note Type Treatment Note Next Visit Plan Assess response to STM, review stretching holds for flexibility as needed. Continiue per PT POC: MET, Flexibility
--- NOTE | 2020-09-27 16:48 | PT.OTN ---
Current Diagnoses Pain in unspecified hip (09/27/20) Pain in unspecified knee (09/27/20) Iliotibial band syndrome, unspecified leg (09/27/20) Lower abdominal pain, unspecified (09/27/20) Physical Therapy Treatment Note PT-OP-A Visit Information Start: 08/30/20 16:33 Freq: Status: Active Protocol: Document 09/27/20 16:04 DCW (Rec: 09/27/20 16:48 DCW [id number]) Out-Patient Physical Therapy Visit Information Visit Information Visit Type Treatment Note Visit Start Time 16:04 Visit Stop Time 16:45 Total Visit Minutes 41 Visit Number 8 Number of HISTORICAL ARCHEOLOGIST Visits 0 Evaluation Information Evaluation Date 08/30/20 PT-OP-B Current Condition Start: 08/30/20 16:33 Freq: Status: Active Protocol: Document 08/30/20 12:00 DCW (Rec: 08/30/20 16:45 DCW [id number]) Current Condition History of Current Condition Onset Date Multi-year history Current Complaints Super tight in hips, low back. History of Current Condition Pt is a 53 year old female presenting with a long- standing history of low back and bilateral hip pain. Pt notes she does not recall any specific injury, just notes she has always been tight. Reports she already spends a lot of time throughout the day stretching her hamstrings, adductors, IT band, hip flexors, and piriformis, but admits she may not hold the stretch long enough. Pt reports she sees a chriopractor every other week, which occasionally helps some . Also notes her biggest complaint is a pinching in her anterior hip with hip flexion past 100?. Pt reports feeling much better when she is up moving around, but feels like everything tightens up when she stops. Also notes it feels like it is bruised when she palpates along her own ASIS. PT-OP-C Subjective Start: 08/30/20 16:33 Freq: Status: Active Protocol: Document 09/27/20 16:04 DCW (Rec: 09/27/20 16:48 DCW [id number]) OP-PT Subjective Patient Comments Patient Comments Pt reports she is still feeling good, there's still a little, little bit of a pinch , but nothing like when I started. PT-OP-F Manual Assessment Start: 08/30/20 16:33 Freq: Status: Active Protocol: Document 08/30/20 12:00 DCW (Rec: 08/30/20 17:57 DCW [id number]) Manual Assessments Soft Tissue Assessment Soft Tissue Mobility Assessment Severe tone with tenderness to palpation 3/4: Wincing and withdraw: bilateral Psoas Moderate tone with tenderness to palpation 3/4: Wincing and withdraw: bilateral ITB, adductors, hamstrings, piriformis. Joint Mobility Assessment Joint Mobility Assessment R anterior pelvic rotation PT-OP-K Range of Motion Start: 08/30/20 16:33 Freq: Status: Active Protocol: Document 08/30/20 12:00 DCW (Rec: 08/30/20 17:57 DCW [id number]) Lumbar Spine Range of Motion Lumbar Spine Active Degrees Testing Position Standing Flexion 28 Extension 5 ROM Limitations Soft Tissue Tightness,Muscle Tone PT-OP-L Special Tests Start: 08/30/20 16:33 Freq: Status: Active Protocol: Document 08/30/20 12:00 DCW (Rec: 08/30/20 17:57 DCW [id number]) Special Tests Lumbar Spine Special Tests Vertical Spine Loading Test Results Negative JAJA Test Results Negative Straight Leg Raise Test Results Negative Slump Test Results Hamstring tightness Manual Traction Test Results Pain relief Compression Test Results Negative A-P Shearing Test Results Negative PT-OP-M Strength Start: 08/30/20 16:33 Freq: Status: Active Protocol: Document 08/30/20 12:00 DCW (Rec: 08/30/20 17:57 DCW [id number]) Hip Strength Hip Manual Muscle Testing Bilateral Flexion (L2) 5 Normal Extension (S1) 5 Normal Abduction 5 Normal Adduction 5 Normal External Rotation 5 Normal Internal Rotation 5 Normal Knee Strength Knee Manual Muscle Testing Bilateral Flexion (S2) 5 Normal Extension (L3) 5 Normal PT-OP-Q Treatments Start: 08/30/20 16:33 Freq: Status: Active Protocol: Document 09/27/20 16:04 DCW (Rec: 09/27/20 16:48 DCW [id number]) Cardio Equipment Recumbent Stepper (Sci-Fit) Duration (Minutes) 5 Resistance 3 Seat Position 7 Gym Equipment Shuttle Recovery Unilateral Squats Details VCs for TrA contraction Resistance 75# Shuttle Recovery Platform Stable Bilateral Squats Details VCs for TrA contraction Resistance 125# Shuttle Recovery Platform Stable Therapeutic Exercises Supine Exercises LE stretching Supine Exercise Name HS, ITB, Piriformis Reps/Minutes 45-60 sec x3-5 reps Comments Manual Standing Exercises 1 Standing Exercise Name Calf stretch Side bilateral Equipment Used [employer] Manual Therapy Treatment Soft Tissue Mobilization 1 Body Location B Psoas Mobilization Type Cross-Friction,Strumming, Sustained Pressure ITB manual and instrument Body Location B ITB, adductor Mobilization Type Cross-Friction,Strumming, Sustained Pressure Intensity/Depth Moderate Body Position Supine PT-OP-T Assessment and Plan Start: 08/30/20 16:33 Freq: Status: Active Protocol: Document 09/27/20 16:04 DCW (Rec: 09/27/20 16:48 DCW [id number]) Physical Therapy Assessment Impairments Impairments Functional Activities, Functional Mobility,Pain,ROM, Soft Tissue Mobility,Tone Goals Three Impairment Severe tone through bilateral psoas Fci Goal (LTG) Pt to display at worst moderate tone bilaterally in hip flexors in order to improve lumbar positioning and ROM LTG Duration 10/28/20 Two Impairment Pt presents with right anterior pelvic rotation Fci Goal (LTG) Pt to present with neutral pelvic rotation for three visits in a row LTG Duration 10/28/20 One Impairment Pt does not have an appropriate home exercise program Short Term Goal (STG) Pt to be independent and compliant with an appropriate HEP STG Duration 09/27/20 Assessment Summary Assessment Pt still showing good improvement with mobility and flexibility. Less overall tone , improved pelvic alignment. Physical Therapy Plan Frequency and Duration Frequency of Treatment 2x/Week Duration of Treatment Two months Plan of Care Start Date 08/30/20 Plan of Care End Date 10/28/20 Therapeutic Interventions Therapeutic Interventions Home Exercise Program,Joint Mobilizations,Manual Therapy, Patient/Caregiver Education, Self-Care/Home Management,Soft Tissue Mobilization, Therapeutic Activities, Therapeutic Exercises Modalities Cold Pack/Ice Massage,Electric Stimulation,Hot Packs, Ultrasound Next Visit Focus/Plan Next Note Type Treatment Note Next Visit Plan Assess response to STM, review stretching holds for flexibility as needed. Continiue per PT POC: MET, Flexibility
--- NOTE | 2020-10-02 15:56 | PT.OTN ---
Current Diagnoses Pain in unspecified hip (10/02/20) Pain in unspecified knee (10/02/20) Iliotibial band syndrome, unspecified leg (10/02/20) Lower abdominal pain, unspecified (10/02/20) Physical Therapy Treatment Note PT-OP-A Visit Information Start: 08/30/20 16:33 Freq: Status: Active Protocol: Document 10/02/20 15:15 DCW (Rec: 10/02/20 15:55 DCW [id number]) Out-Patient Physical Therapy Visit Information Visit Information Visit Type Treatment Note Visit Start Time 15:15 Visit Stop Time 16:00 Total Visit Minutes 45 Visit Number 9 Number of MINUTE CLERK FOR BASIC TRAFFIC Visits 0 Evaluation Information Evaluation Date 08/30/20 PT-OP-B Current Condition Start: 08/30/20 16:33 Freq: Status: Active Protocol: Document 08/30/20 12:00 DCW (Rec: 08/30/20 16:45 DCW [id number]) Current Condition History of Current Condition Onset Date Multi-year history Current Complaints Super tight in hips, low back. History of Current Condition Pt is a 53 year old female presenting with a long- standing history of low back and bilateral hip pain. Pt notes she does not recall any specific injury, just notes she has always been tight. Reports she already spends a lot of time throughout the day stretching her hamstrings, adductors, IT band, hip flexors, and piriformis, but admits she may not hold the stretch long enough. Pt reports she sees a chriopractor every other week, which occasionally helps some . Also notes her biggest complaint is a pinching in her anterior hip with hip flexion past 100?. Pt reports feeling much better when she is up moving around, but feels like everything tightens up when she stops. Also notes it feels like it is bruised when she palpates along her own ASIS. PT-OP-C Subjective Start: 08/30/20 16:33 Freq: Status: Active Protocol: Document 10/02/20 15:15 DCW (Rec: 10/02/20 15:55 DCW [id number]) OP-PT Subjective Patient Comments Patient Comments I did my walk this afternoon, I felt good, no pain anywhere . Pt also notes she was able to play Pickleball on Friday with no pain. PT-OP-F Manual Assessment Start: 08/30/20 16:33 Freq: Status: Active Protocol: Document 08/30/20 12:00 DCW (Rec: 08/30/20 17:57 DCW [id number]) Manual Assessments Soft Tissue Assessment Soft Tissue Mobility Assessment Severe tone with tenderness to palpation 3/4: Wincing and withdraw: bilateral Psoas Moderate tone with tenderness to palpation 3/4: Wincing and withdraw: bilateral ITB, adductors, hamstrings, piriformis. Joint Mobility Assessment Joint Mobility Assessment R anterior pelvic rotation PT-OP-K Range of Motion Start: 08/30/20 16:33 Freq: Status: Active Protocol: Document 08/30/20 12:00 DCW (Rec: 08/30/20 17:57 DCW [id number]) Lumbar Spine Range of Motion Lumbar Spine Active Degrees Testing Position Standing Flexion 28 Extension 5 ROM Limitations Soft Tissue Tightness,Muscle Tone PT-OP-L Special Tests Start: 08/30/20 16:33 Freq: Status: Active Protocol: Document 08/30/20 12:00 DCW (Rec: 08/30/20 17:57 DCW [id number]) Special Tests Lumbar Spine Special Tests Vertical Spine Loading Test Results Negative JAJA Test Results Negative Straight Leg Raise Test Results Negative Slump Test Results Hamstring tightness Manual Traction Test Results Pain relief Compression Test Results Negative A-P Shearing Test Results Negative PT-OP-M Strength Start: 08/30/20 16:33 Freq: Status: Active Protocol: Document 08/30/20 12:00 DCW (Rec: 08/30/20 17:57 DCW [id number]) Hip Strength Hip Manual Muscle Testing Bilateral Flexion (L2) 5 Normal Extension (S1) 5 Normal Abduction 5 Normal Adduction 5 Normal External Rotation 5 Normal Internal Rotation 5 Normal Knee Strength Knee Manual Muscle Testing Bilateral Flexion (S2) 5 Normal Extension (L3) 5 Normal PT-OP-Q Treatments Start: 08/30/20 16:33 Freq: Status: Active Protocol: Document 10/02/20 15:15 DCW (Rec: 10/02/20 15:55 DCW [id number]) Cardio Equipment Recumbent Stepper (Sci-Fit) Duration (Minutes) 5 Resistance 4 Seat Position 7 Gym Equipment Shuttle Recovery Unilateral Squats Details VCs for TrA contraction Resistance 75# Shuttle Recovery Platform Stable Bilateral Squats Details VCs for TrA contraction Resistance 125# Shuttle Recovery Platform Stable Therapeutic Exercises Standing Exercises 1 Standing Exercise Name Calf stretch Side bilateral Equipment Used SMITA Manual Therapy Treatment Soft Tissue Mobilization 1 Body Location B Psoas Mobilization Type Cross-Friction,Strumming, Sustained Pressure ITB manual and instrument Body Location B ITB, adductor Mobilization Type Cross-Friction,Strumming, Sustained Pressure Intensity/Depth Moderate Body Position Supine PT-OP-T Assessment and Plan Start: 08/30/20 16:33 Freq: Status: Active Protocol: Document 10/02/20 15:15 DCW (Rec: 10/02/20 15:55 DCW [id number]) Physical Therapy Assessment Impairments Impairments Functional Activities, Functional Mobility,Pain,ROM, Soft Tissue Mobility,Tone Goals Three Impairment Severe tone through bilateral psoas [facility] Goal (LTG) Pt to display at worst moderate tone bilaterally in hip flexors in order to improve lumbar positioning and ROM LTG Duration 10/28/20 Two Impairment Pt presents with right anterior pelvic rotation [facility] Goal (LTG) Pt to present with neutral pelvic rotation for three visits in a row LTG Duration 10/28/20 One Impairment Pt does not have an appropriate home exercise program Short Term Goal (STG) Pt to be independent and compliant with an appropriate HEP STG Duration 09/27/20 Assessment Summary Assessment Pt continues to make great progress. Significant decrease in tone through hips and LEs. Physical Therapy Plan Frequency and Duration Frequency of Treatment 2x/Week Duration of Treatment Two months Plan of Care Start Date 08/30/20 Plan of Care End Date 10/28/20 Therapeutic Interventions Therapeutic Interventions Home Exercise Program,Joint Mobilizations,Manual Therapy, Patient/Caregiver Education, Self-Care/Home Management,Soft Tissue Mobilization, Therapeutic Activities, Therapeutic Exercises Modalities Cold Pack/Ice Massage,Electric Stimulation,Hot Packs, Ultrasound Next Visit Focus/Plan Next Note Type Treatment Note Next Visit Plan Assess response to STM, review stretching holds for flexibility as needed. Continiue per PT POC: MET, Flexibility
--- NOTE | 2020-10-04 16:08 | PT.OTN ---
Current Diagnoses Pain in unspecified hip (10/04/20) Pain in unspecified knee (10/04/20) Iliotibial band syndrome, unspecified leg (10/04/20) Lower abdominal pain, unspecified (10/04/20) Physical Therapy Treatment Note PT-OP-A Visit Information Start: 08/30/20 16:33 Freq: Status: Active Protocol: Document 10/04/20 15:15 DCW (Rec: 10/04/20 16:08 DCW [id number]) Out-Patient Physical Therapy Visit Information Visit Information Visit Type Treatment Note Visit Start Time 15:15 Visit Stop Time 16:00 Total Visit Minutes 45 Visit Number 10 Number of CARTOGRAPHIC AIDE Visits 0 Evaluation Information Evaluation Date 08/30/20 PT-OP-B Current Condition Start: 08/30/20 16:33 Freq: Status: Active Protocol: Document 08/30/20 12:00 DCW (Rec: 08/30/20 16:45 DCW [id number]) Current Condition History of Current Condition Onset Date Multi-year history Current Complaints Super tight in hips, low back. History of Current Condition Pt is a 53 year old female presenting with a long- standing history of low back and bilateral hip pain. Pt notes she does not recall any specific injury, just notes she has always been tight. Reports she already spends a lot of time throughout the day stretching her hamstrings, adductors, IT band, hip flexors, and piriformis, but admits she may not hold the stretch long enough. Pt reports she sees a chriopractor every other week, which occasionally helps some . Also notes her biggest complaint is a pinching in her anterior hip with hip flexion past 100?. Pt reports feeling much better when she is up moving around, but feels like everything tightens up when she stops. Also notes it feels like it is bruised when she palpates along her own ASIS. PT-OP-C Subjective Start: 08/30/20 16:33 Freq: Status: Active Protocol: Document 10/04/20 15:15 DCW (Rec: 10/04/20 16:08 DCW [id number]) OP-PT Subjective Patient Comments Patient Comments Pt notes she is pretty good today. PT-OP-F Manual Assessment Start: 08/30/20 16:33 Freq: Status: Active Protocol: Document 08/30/20 12:00 DCW (Rec: 08/30/20 17:57 DCW [id number]) Manual Assessments Soft Tissue Assessment Soft Tissue Mobility Assessment Severe tone with tenderness to palpation 3/4: Wincing and withdraw: bilateral Psoas Moderate tone with tenderness to palpation 3/4: Wincing and withdraw: bilateral ITB, adductors, hamstrings, piriformis. Joint Mobility Assessment Joint Mobility Assessment R anterior pelvic rotation PT-OP-K Range of Motion Start: 08/30/20 16:33 Freq: Status: Active Protocol: Document 08/30/20 12:00 DCW (Rec: 08/30/20 17:57 DCW [id number]) Lumbar Spine Range of Motion Lumbar Spine Active Degrees Testing Position Standing Flexion 28 Extension 5 ROM Limitations Soft Tissue Tightness,Muscle Tone PT-OP-L Special Tests Start: 08/30/20 16:33 Freq: Status: Active Protocol: Document 08/30/20 12:00 DCW (Rec: 08/30/20 17:57 DCW [id number]) Special Tests Lumbar Spine Special Tests Vertical Spine Loading Test Results Negative JAJA Test Results Negative Straight Leg Raise Test Results Negative Slump Test Results Hamstring tightness Manual Traction Test Results Pain relief Compression Test Results Negative A-P Shearing Test Results Negative PT-OP-M Strength Start: 08/30/20 16:33 Freq: Status: Active Protocol: Document 08/30/20 12:00 DCW (Rec: 08/30/20 17:57 DCW [id number]) Hip Strength Hip Manual Muscle Testing Bilateral Flexion (L2) 5 Normal Extension (S1) 5 Normal Abduction 5 Normal Adduction 5 Normal External Rotation 5 Normal Internal Rotation 5 Normal Knee Strength Knee Manual Muscle Testing Bilateral Flexion (S2) 5 Normal Extension (L3) 5 Normal PT-OP-Q Treatments Start: 08/30/20 16:33 Freq: Status: Active Protocol: Document 10/04/20 15:15 DCW (Rec: 10/04/20 16:08 DCW [id number]) Cardio Equipment Recumbent Stepper (Sci-Fit) Duration (Minutes) 5 Resistance 4 Seat Position 7 Gym Equipment Shuttle Recovery Unilateral Squats Details VCs for TrA contraction Resistance 75# Shuttle Recovery Platform Stable Bilateral Squats Details VCs for TrA contraction Resistance 125# Shuttle Recovery Platform Stable Therapeutic Exercises Supine Exercises LE stretching Supine Exercise Name HS, ITB, Piriformis Reps/Minutes 45-60 sec x3-5 reps Comments Manual Standing Exercises 1 Standing Exercise Name Calf stretch Side bilateral Equipment Used SMITA Manual Therapy Treatment Soft Tissue Mobilization 1 Body Location B Psoas Mobilization Type Cross-Friction,Strumming, Sustained Pressure ITB manual and instrument Body Location B ITB, adductor Mobilization Type Cross-Friction,Strumming, Sustained Pressure Intensity/Depth Moderate Body Position Supine PT-OP-T Assessment and Plan Start: 08/30/20 16:33 Freq: Status: Active Protocol: Document 10/04/20 15:15 DCW (Rec: 10/04/20 16:08 DCW [id number]) Physical Therapy Assessment Impairments Impairments Functional Activities, Functional Mobility,Pain,ROM, Soft Tissue Mobility,Tone Goals Three Impairment Severe tone through bilateral psoas Device Sales Consultant Goal (LTG) Pt to display at worst moderate tone bilaterally in hip flexors in order to improve lumbar positioning and ROM LTG Duration 10/28/20 Two Impairment Pt presents with right anterior pelvic rotation Longterm Goal (LTG) Pt to present with neutral pelvic rotation for three visits in a row LTG Duration 10/28/20 One Impairment Pt does not have an appropriate home exercise program Short Term Goal (STG) Pt to be independent and compliant with an appropriate HEP STG Duration 09/27/20 Assessment Summary Assessment Still showing slight signs of right hip capsule tightness, but overall pelvic alignment has greatly improved, as has overall muscle tone. Physical Therapy Plan Frequency and Duration Frequency of Treatment 2x/Week Duration of Treatment Two months Plan of Care Start Date 08/30/20 Plan of Care End Date 10/28/20 Therapeutic Interventions Therapeutic Interventions Home Exercise Program,Joint Mobilizations,Manual Therapy, Patient/Caregiver Education, Self-Care/Home Management,Soft Tissue Mobilization, Therapeutic Activities, Therapeutic Exercises Modalities Cold Pack/Ice Massage,Electric Stimulation,Hot Packs, Ultrasound Next Visit Focus/Plan Next Note Type Treatment Note Next Visit Plan Assess response to STM, review stretching holds for flexibility as needed. Continiue per PT POC: MET, Flexibility
--- NOTE | 2020-10-11 12:40 | PT.OTN ---
Current Diagnoses Pain in unspecified hip (10/11/20) Pain in unspecified knee (10/11/20) Iliotibial band syndrome, unspecified leg (10/11/20) Lower abdominal pain, unspecified (10/11/20) Physical Therapy Treatment Note PT-OP-A Visit Information Start: 08/30/20 16:33 Freq: Status: Active Protocol: Document 10/11/20 12:00 DCW (Rec: 10/11/20 12:40 DCW [id number]) Out-Patient Physical Therapy Visit Information Visit Information Visit Type Treatment Note Visit Start Time 12:00 Visit Stop Time 12:45 Total Visit Minutes 45 Visit Number 11 Number of MARINE TECHNICIAN Visits 0 Evaluation Information Evaluation Date 08/30/20 PT-OP-B Current Condition Start: 08/30/20 16:33 Freq: Status: Active Protocol: Document 08/30/20 12:00 DCW (Rec: 08/30/20 16:45 DCW [id number]) Current Condition History of Current Condition Onset Date Multi-year history Current Complaints Super tight in hips, low back. History of Current Condition Pt is a 53 year old female presenting with a long- standing history of low back and bilateral hip pain. Pt notes she does not recall any specific injury, just notes she has always been tight. Reports she already spends a lot of time throughout the day stretching her hamstrings, adductors, IT band, hip flexors, and piriformis, but admits she may not hold the stretch long enough. Pt reports she sees a chriopractor every other week, which occasionally helps some . Also notes her biggest complaint is a pinching in her anterior hip with hip flexion past 100?. Pt reports feeling much better when she is up moving around, but feels like everything tightens up when she stops. Also notes it feels like it is bruised when she palpates along her own ASIS. PT-OP-C Subjective Start: 08/30/20 16:33 Freq: Status: Active Protocol: Document 10/11/20 12:00 DCW (Rec: 10/11/20 12:40 DCW [id number]) OP-PT Subjective Patient Comments Patient Comments Pt notes she is doing well, had a good massage this morning, so she is feeling relaxed. PT-OP-F Manual Assessment Start: 08/30/20 16:33 Freq: Status: Active Protocol: Document 08/30/20 12:00 DCW (Rec: 08/30/20 17:57 DCW [id number]) Manual Assessments Soft Tissue Assessment Soft Tissue Mobility Assessment Severe tone with tenderness to palpation 3/4: Wincing and withdraw: bilateral Psoas Moderate tone with tenderness to palpation 3/4: Wincing and withdraw: bilateral ITB, adductors, hamstrings, piriformis. Joint Mobility Assessment Joint Mobility Assessment R anterior pelvic rotation PT-OP-K Range of Motion Start: 08/30/20 16:33 Freq: Status: Active Protocol: Document 08/30/20 12:00 DCW (Rec: 08/30/20 17:57 DCW [id number]) Lumbar Spine Range of Motion Lumbar Spine Active Degrees Testing Position Standing Flexion 28 Extension 5 ROM Limitations Soft Tissue Tightness,Muscle Tone PT-OP-L Special Tests Start: 08/30/20 16:33 Freq: Status: Active Protocol: Document 08/30/20 12:00 DCW (Rec: 08/30/20 17:57 DCW [id number]) Special Tests Lumbar Spine Special Tests Vertical Spine Loading Test Results Negative JAJA Test Results Negative Straight Leg Raise Test Results Negative Slump Test Results Hamstring tightness Manual Traction Test Results Pain relief Compression Test Results Negative A-P Shearing Test Results Negative PT-OP-M Strength Start: 08/30/20 16:33 Freq: Status: Active Protocol: Document 08/30/20 12:00 DCW (Rec: 08/30/20 17:57 DCW [id number]) Hip Strength Hip Manual Muscle Testing Bilateral Flexion (L2) 5 Normal Extension (S1) 5 Normal Abduction 5 Normal Adduction 5 Normal External Rotation 5 Normal Internal Rotation 5 Normal Knee Strength Knee Manual Muscle Testing Bilateral Flexion (S2) 5 Normal Extension (L3) 5 Normal PT-OP-Q Treatments Start: 08/30/20 16:33 Freq: Status: Active Protocol: Document 10/11/20 12:00 DCW (Rec: 10/11/20 12:40 DCW [id number]) Cardio Equipment Recumbent Elliptical (Biodex) Duration (Minutes) 5 Resistance 4 Seat Position 5 Gym Equipment Shuttle Recovery Unilateral Squats Details VCs for TrA contraction Resistance 75# Shuttle Recovery Platform Stable Bilateral Squats Details VCs for TrA contraction Resistance 125# Shuttle Recovery Platform Stable Therapeutic Exercises Standing Exercises 2 Standing Exercise Name [place] bilateral Resistance Yellow Equipment Used T-band 1 Standing Exercise Name Calf stretch Side bilateral Equipment Used SMITA Other Exercises 1 Other Exercise Name Resisted side stepping Resistance Yellow Equipment Used T-band Manual Therapy Treatment Soft Tissue Mobilization 1 Body Location B Psoas Mobilization Type Cross-Friction,Strumming, Sustained Pressure ITB manual and instrument Body Location B ITB, adductor Mobilization Type Cross-Friction,Strumming, Sustained Pressure Intensity/Depth Moderate Body Position Supine PT-OP-T Assessment and Plan Start: 08/30/20 16:33 Freq: Status: Active Protocol: Document 10/11/20 12:00 DCW (Rec: 10/11/20 12:40 DCW [id number]) Physical Therapy Assessment Impairments Impairments Functional Activities, Functional Mobility,Pain,ROM, Soft Tissue Mobility,Tone Goals Three Impairment Severe tone through bilateral psoas Director Of Training Goal (LTG) Pt to display at worst moderate tone bilaterally in hip flexors in order to improve lumbar positioning and ROM LTG Duration 10/28/20 Two Impairment Pt presents with right anterior pelvic rotation Director Of Training Goal (LTG) Pt to present with neutral pelvic rotation for three visits in a row LTG Duration 10/28/20 One Impairment Pt does not have an appropriate home exercise program Short Term Goal (STG) Pt to be independent and compliant with an appropriate HEP STG Duration 09/27/20 Assessment Summary Assessment Pt continues to do very well, less tone, tightness, and pain throughout her hips and low back. Pt likely to discharge following last two remaining scheduled appointments. Physical Therapy Plan Frequency and Duration Frequency of Treatment 2x/Week Duration of Treatment Two months Plan of Care Start Date 08/30/20 Plan of Care End Date 10/28/20 Therapeutic Interventions Therapeutic Interventions Home Exercise Program,Joint Mobilizations,Manual Therapy, Patient/Caregiver Education, Self-Care/Home Management,Soft Tissue Mobilization, Therapeutic Activities, Therapeutic Exercises Modalities Cold Pack/Ice Massage,Electric Stimulation,Hot Packs, Ultrasound Next Visit Focus/Plan Next Note Type Treatment Note Next Visit Plan Assess response to STM, review stretching holds for flexibility as needed. Continiue per PT POC: MET, Flexibility
--- NOTE | 2020-10-13 12:47 | PT.OTN ---
Current Diagnoses Pain in unspecified hip (10/13/20) Pain in unspecified knee (10/13/20) Iliotibial band syndrome, unspecified leg (10/13/20) Lower abdominal pain, unspecified (10/13/20) Physical Therapy Treatment Note PT-OP-A Visit Information Start: 08/30/20 16:33 Freq: Status: Active Protocol: Document 10/13/20 12:00 DCW (Rec: 10/13/20 12:45 DCW [id number]) Out-Patient Physical Therapy Visit Information Visit Information Visit Type Treatment Note Visit Start Time 12:00 Visit Stop Time 12:45 Total Visit Minutes 45 Visit Number 12 Number of EYE GLASS FRAME POLISHER Visits 0 Evaluation Information Evaluation Date 08/30/20 PT-OP-B Current Condition Start: 08/30/20 16:33 Freq: Status: Active Protocol: Document 08/30/20 12:00 DCW (Rec: 08/30/20 16:45 DCW [id number]) Current Condition History of Current Condition Onset Date Multi-year history Current Complaints Super tight in hips, low back. History of Current Condition Pt is a 53 year old female presenting with a long- standing history of low back and bilateral hip pain. Pt notes she does not recall any specific injury, just notes she has always been tight. Reports she already spends a lot of time throughout the day stretching her hamstrings, adductors, IT band, hip flexors, and piriformis, but admits she may not hold the stretch long enough. Pt reports she sees a chriopractor every other week, which occasionally helps some . Also notes her biggest complaint is a pinching in her anterior hip with hip flexion past 100?. Pt reports feeling much better when she is up moving around, but feels like everything tightens up when she stops. Also notes it feels like it is bruised when she palpates along her own ASIS. PT-OP-C Subjective Start: 08/30/20 16:33 Freq: Status: Active Protocol: Document 10/13/20 12:00 DCW (Rec: 10/13/20 12:47 DCW [id number]) OP-PT Subjective Patient Comments Patient Comments Pt reports she has been doing much better, and actually started a 30 day stretching program that focuses on loosening up the hip. PT-OP-F Manual Assessment Start: 08/30/20 16:33 Freq: Status: Active Protocol: Document 08/30/20 12:00 DCW (Rec: 08/30/20 17:57 DCW [id number]) Manual Assessments Soft Tissue Assessment Soft Tissue Mobility Assessment Severe tone with tenderness to palpation 3/4: Wincing and withdraw: bilateral Psoas Moderate tone with tenderness to palpation 3/4: Wincing and withdraw: bilateral ITB, adductors, hamstrings, piriformis. Joint Mobility Assessment Joint Mobility Assessment R anterior pelvic rotation PT-OP-K Range of Motion Start: 08/30/20 16:33 Freq: Status: Active Protocol: Document 08/30/20 12:00 DCW (Rec: 08/30/20 17:57 DCW [id number]) Lumbar Spine Range of Motion Lumbar Spine Active Degrees Testing Position Standing Flexion 28 Extension 5 ROM Limitations Soft Tissue Tightness,Muscle Tone PT-OP-L Special Tests Start: 08/30/20 16:33 Freq: Status: Active Protocol: Document 08/30/20 12:00 DCW (Rec: 08/30/20 17:57 DCW [id number]) Special Tests Lumbar Spine Special Tests Vertical Spine Loading Test Results Negative JAJA Test Results Negative Straight Leg Raise Test Results Negative Slump Test Results Hamstring tightness Manual Traction Test Results Pain relief Compression Test Results Negative A-P Shearing Test Results Negative PT-OP-M Strength Start: 08/30/20 16:33 Freq: Status: Active Protocol: Document 08/30/20 12:00 DCW (Rec: 08/30/20 17:57 DCW [id number]) Hip Strength Hip Manual Muscle Testing Bilateral Flexion (L2) 5 Normal Extension (S1) 5 Normal Abduction 5 Normal Adduction 5 Normal External Rotation 5 Normal Internal Rotation 5 Normal Knee Strength Knee Manual Muscle Testing Bilateral Flexion (S2) 5 Normal Extension (L3) 5 Normal PT-OP-Q Treatments Start: 08/30/20 16:33 Freq: Status: Active Protocol: Document 10/13/20 12:00 DCW (Rec: 10/13/20 12:45 DCW [id number]) Cardio Equipment Recumbent Stepper (Sci-Fit) Duration (Minutes) 5 Resistance 4 Seat Position 7 Gym Equipment Cable Column (Body Solid) Pallof Press Resistance 10# Shuttle Recovery Unilateral Squats Details VCs for TrA contraction Resistance 75# Shuttle Recovery Platform Stable Bilateral Squats Details VCs for TrA contraction Resistance 125# Shuttle Recovery Platform Stable Therapeutic Exercises Supine Exercises LE stretching Supine Exercise Name HS, ITB, Piriformis, Adductors Reps/Minutes 45-60 sec x3-5 reps Comments Manual Standing Exercises 2 Standing Exercise Name Skaters Side bilateral Resistance Yellow Equipment Used T-band 1 Standing Exercise Name Calf stretch Side bilateral Equipment Used SMITA Manual Therapy Treatment Soft Tissue Mobilization 1 Body Location B Psoas Mobilization Type Cross-Friction,Strumming, Sustained Pressure ITB manual and instrument Body Location B ITB, adductor Mobilization Type Cross-Friction,Strumming, Sustained Pressure Intensity/Depth Moderate Body Position Supine PT-OP-T Assessment and Plan Start: 08/30/20 16:33 Freq: Status: Active Protocol: Document 10/13/20 12:00 DCW (Rec: 10/13/20 12:45 DCW [id number]) Physical Therapy Assessment Impairments Impairments Functional Activities, Functional Mobility,Pain,ROM, Soft Tissue Mobility,Tone Goals Three Impairment Severe tone through bilateral psoas Mcc Goal (LTG) Pt to display at worst moderate tone bilaterally in hip flexors in order to improve lumbar positioning and ROM LTG Duration 10/28/20 Two Impairment Pt presents with right anterior pelvic rotation Mcc Goal (LTG) Pt to present with neutral pelvic rotation for three visits in a row LTG Duration 10/28/20 One Impairment Pt does not have an appropriate home exercise program Short Term Goal (STG) Pt to be independent and compliant with an appropriate HEP STG Duration 09/27/20 Assessment Summary Assessment Pt feeling much better overall , agreeable to discharge following her next visit. Physical Therapy Plan Frequency and Duration Frequency of Treatment 2x/Week Duration of Treatment Two months Plan of Care Start Date 08/30/20 Plan of Care End Date 10/28/20 Therapeutic Interventions Therapeutic Interventions Home Exercise Program,Joint Mobilizations,Manual Therapy, Patient/Caregiver Education, Self-Care/Home Management,Soft Tissue Mobilization, Therapeutic Activities, Therapeutic Exercises Modalities Cold Pack/Ice Massage,Electric Stimulation,Hot Packs, Ultrasound Next Visit Focus/Plan Next Note Type Treatment Note Next Visit Plan Assess response to STM, review stretching holds for flexibility as needed. Continiue per PT POC: MET, Flexibility
--- NOTE | 2020-10-16 10:26 | PT.OTN ---
Current Diagnoses Pain in unspecified hip (10/16/20) Pain in unspecified knee (10/16/20) Iliotibial band syndrome, unspecified leg (10/16/20) Lower abdominal pain, unspecified (10/16/20) Physical Therapy Treatment Note PT-OP-A Visit Information Start: 08/30/20 16:33 Freq: Status: Active Protocol: Document 10/16/20 09:45 DCW (Rec: 10/16/20 10:26 DCW [id number]) Out-Patient Physical Therapy Visit Information Visit Information Visit Type Discharge Summary Visit Start Time 09:45 Visit Stop Time 10:15 Total Visit Minutes 30 Visit Number 13 Number of DATA SYSTEMS MANAGER Visits 0 Evaluation Information Evaluation Date 08/30/20 PT-OP-B Current Condition Start: 08/30/20 16:33 Freq: Status: Active Protocol: Document 08/30/20 12:00 DCW (Rec: 08/30/20 16:45 DCW [id number]) Current Condition History of Current Condition Onset Date Multi-year history Current Complaints Super tight in hips, low back. History of Current Condition Pt is a 53 year old female presenting with a long- standing history of low back and bilateral hip pain. Pt notes she does not recall any specific injury, just notes she has always been tight. Reports she already spends a lot of time throughout the day stretching her hamstrings, adductors, IT band, hip flexors, and piriformis, but admits she may not hold the stretch long enough. Pt reports she sees a chriopractor every other week, which occasionally helps some . Also notes her biggest complaint is a pinching in her anterior hip with hip flexion past 100?. Pt reports feeling much better when she is up moving around, but feels like everything tightens up when she stops. Also notes it feels like it is bruised when she palpates along her own ASIS. PT-OP-C Subjective Start: 08/30/20 16:33 Freq: Status: Active Protocol: Document 10/16/20 09:45 DCW (Rec: 10/16/20 10:26 DCW [id number]) OP-PT Subjective Patient Comments Patient Comments Pt reports she is doing well, still confident in discharge following today's visit. PT-OP-F Manual Assessment Start: 08/30/20 16:33 Freq: Status: Active Protocol: Document 10/16/20 09:45 DCW (Rec: 10/16/20 10:26 DCW [id number]) Manual Assessments Soft Tissue Assessment Soft Tissue Mobility Assessment Mild tone with tenderness to palpation 07/24: Complaint of pain: bilateral Psoas, bilateral ITB, adductors, hamstrings, piriformis. Joint Mobility Assessment Joint Mobility Assessment Pelvis in neutral PT-OP-K Range of Motion Start: 08/30/20 16:33 Freq: Status: Active Protocol: Document 10/16/20 09:45 DCW (Rec: 10/16/20 09:52 DCW [id number]) Lumbar Spine Range of Motion Lumbar Spine Active Degrees Testing Position Standing Flexion 65 Extension 25 PT-OP-L Special Tests Start: 08/30/20 16:33 Freq: Status: Active Protocol: Document 10/16/20 09:45 DCW (Rec: 10/16/20 09:52 DCW [id number]) Special Tests Lumbar Spine Special Tests Slump Test Results Negative PT-OP-M Strength Start: 08/30/20 16:33 Freq: Status: Active Protocol: Document 08/30/20 12:00 DCW (Rec: 08/30/20 17:57 DCW [id number]) Hip Strength Hip Manual Muscle Testing Bilateral Flexion (L2) 5 Normal Extension (S1) 5 Normal Abduction 5 Normal Adduction 5 Normal External Rotation 5 Normal Internal Rotation 5 Normal Knee Strength Knee Manual Muscle Testing Bilateral Flexion (S2) 5 Normal Extension (L3) 5 Normal PT-OP-Q Treatments Start: 08/30/20 16:33 Freq: Status: Active Protocol: Document 10/16/20 09:45 DCW (Rec: 10/16/20 10:26 DCW [id number]) Cardio Equipment Recumbent Elliptical (Biodex) Duration (Minutes) 5 Resistance 4 Seat Position 5 Gym Equipment Shuttle Recovery Unilateral Squats Details VCs for TrA contraction Resistance 75# Shuttle Recovery Platform Stable Bilateral Squats Details VCs for TrA contraction Resistance 125# Shuttle Recovery Platform Stable Therapeutic Exercises Supine Exercises LE stretching Supine Exercise Name HS, ITB, Piriformis, Adductors Reps/Minutes 45-60 sec x3-5 reps Comments Manual Standing Exercises 2 Standing Exercise Name Skaters Side bilateral Resistance Yellow Equipment Used T-band Manual Therapy Treatment Soft Tissue Mobilization 1 Body Location B Psoas Mobilization Type Cross-Friction,Strumming, Sustained Pressure ITB manual and instrument Body Location B ITB, adductor Mobilization Type Cross-Friction,Strumming, Sustained Pressure Intensity/Depth Moderate Body Position Supine PT-OP-T Assessment and Plan Start: 08/30/20 16:33 Freq: Status: Active Protocol: Document 10/16/20 09:45 DCW (Rec: 10/16/20 10:26 DCW [id number]) Physical Therapy Assessment Impairments Impairments Functional Activities, Functional Mobility,Pain,ROM, Soft Tissue Mobility,Tone Goals Three Impairment Severe tone through bilateral psoas Usp Goal (LTG) Pt to display at worst moderate tone bilaterally in hip flexors in order to improve lumbar positioning and ROM LTG Duration Met Two Impairment Pt presents with right anterior pelvic rotation Product Manager Medical Device Goal (LTG) Pt to present with neutral pelvic rotation for three visits in a row LTG Duration Met One Impairment Pt does not have an appropriate home exercise program Short Term Goal (STG) Pt to be independent and compliant with an appropriate HEP STG Duration Met Progress Towards Goals Progress Towards Goals Goals Met Assessment Summary Assessment Pt has met all goals, has not bee showing any signs of pelvic rotation. Pt independent with HEP, appropriate for d/c at this time. Physical Therapy Plan Frequency and Duration Frequency of Treatment 2x/Week Duration of Treatment Two months Plan of Care Start Date 08/30/20 Plan of Care End Date 10/28/20 Therapeutic Interventions Therapeutic Interventions Home Exercise Program,Joint Mobilizations,Manual Therapy, Patient/Caregiver Education, Self-Care/Home Management,Soft Tissue Mobilization, Therapeutic Activities, Therapeutic Exercises Modalities Cold Pack/Ice Massage,Electric Stimulation,Hot Packs, Ultrasound Discharge Physical Therapy Discharge Reasons Goals Met Next Visit Focus/Plan Next Note Type Discharge Summary
== END 2020-10-16 14:46 ==
LOC: PHYS 09:45
PROVIDERS: PCP Family Medicine; Referring Provider Family Medicine; Visit Provider Family Medicine
DX: M25.569 Pain in unspecified knee (principal); R10.30 Lower abdominal pain, unspecified; M25.559 Pain in unspecified hip; M76.30 Iliotibial band syndrome, unspecified leg
CPT/HCPCS: 97110; 97140; 97161; 97535

== ENCOUNTER → 2021-09-26 08:20 | Outpatient (CLI) | payer OTHER, SELFPAY ==
--- NOTE | 2021-09-26 | DI.MG.S_ITS ---
BILATERAL DIGITAL SCREENING MAMMOGRAM 3D/2D WITH CAD: 09/26/2021 CLINICAL: Routine screening. Comparison is made to exams dated: 09/25/2020 mammogram, 09/23/2019 mammogram - [facility], and 09/21/2018 mammogram - [facility]. The tissue of both breasts is heterogeneously dense. This may lower the sensitivity of mammography. Current study was also evaluated with a Computer Aided Detection (CAD) system. There are benign calcifications in the left breast. No significant masses, calcifications, or other findings are seen in either breast. There has been no significant interval change. IMPRESSION: BENIGN There is no mammographic evidence of malignancy. A 1 year screening mammogram is recommended. This exam was interpreted at Station ID: [id number]. NOTE: For mammograms, a report in lay terms will be sent to the patient. Approximately 15% of breast malignancies will not be visualized mammographically. In the management of a palpable breast mass, a negative mammogram must not discourage biopsy of a clinically suspicious lesion. Electronically Signed By: Hanny jose/rhea:09/26/2021 12:05:10 letter sent: Normal Exam ACR BI-RADS Category 2: Benign Finding(s) 3342F
== END ==
PROVIDERS: PCP Family Medicine; Referring Provider Family Medicine; Visit Provider Family Medicine
DX: Z12.31 Encounter for screening mammogram for malignant neoplasm of breast (principal)
CPT/HCPCS: 77063; 77067

== ENCOUNTER → 2022-10-02 12:39 | Outpatient (CLI) | payer OTHER, SELFPAY ==
--- NOTE | 2022-10-02 | DI.MG.S_ITS ---
BILATERAL DIGITAL SCREENING MAMMOGRAM 3D/2D WITH CAD: 10/02/2022 CLINICAL: Routine screening. Comparison is made to exams dated: 09/26/2021 mammogram, 09/25/2020 mammogram, and 09/23/2019 mammogram - [facility]. Both breasts are heterogeneously dense, which may obscure small masses (category c / 51-75% glandular tissue). Current study was also evaluated with a Computer Aided Detection (CAD) system. There are benign calcifications in both breasts. No significant masses, calcifications, or other findings are seen in either breast. There has been no significant interval change. IMPRESSION: BENIGN There is no mammographic evidence of malignancy. A 1 year screening mammogram is recommended. Based on the Tyrer Cuzick model (a risk assessment model) the patient's lifetime risk is 13.8% and her 10 year risk is 4.1%. According to the ACR, ACS, and NCCN guidelines, an annual breast MRI exam along with mammogram is recommended if the patient's lifetime risk is 20% or greater. This exam was interpreted at Station ID: [id number]. NOTE: For mammograms, a report in lay terms will be sent to the patient. Approximately 15% of breast malignancies will not be visualized mammographically. In the management of a palpable breast mass, a negative mammogram must not discourage biopsy of a clinically suspicious lesion. Electronically Signed By: Mahin Hernandez M.D. acr/rhea:10/02/2022 13:40:41 letter sent: Normal Exam ACR BI-RADS Category 2: Benign Finding(s) 3342F
== END ==
PROVIDERS: PCP Family Medicine; Referring Provider Family Medicine; Visit Provider Family Medicine
DX: Z12.31 Encounter for screening mammogram for malignant neoplasm of breast (principal)
CPT/HCPCS: 77063; 77067

== ENCOUNTER → 2023-10-06 09:56 | Outpatient (CLI) | payer OTHER, SELFPAY ==
--- NOTE | 2023-10-06 09:57 | DI.MG.S_ITS ---
BILATERAL DIGITAL SCREENING MAMMOGRAM 3D/2D WITH CAD: 10/06/2023 CLINICAL: Routine screening. Comparison is made to exams dated: 10/02/2022 mammogram, 09/26/2021 mammogram, and 09/25/2020 mammogram - [facility]. Both breasts are heterogeneously dense, which may obscure small masses (category c / 51-75% glandular tissue). Current study was also evaluated with a Computer Aided Detection (CAD) system. There are benign calcifications in both breasts. No significant masses, calcifications, or other findings are seen in either breast. There has been no significant interval change. IMPRESSION: BENIGN There is no mammographic evidence of malignancy. A 1 year screening mammogram is recommended. Based on the Tyrer Cuzick model (a risk assessment model) the patient's lifetime risk is 13.7% and her 10 year risk is 4.3%. According to the ACR, ACS, and NCCN guidelines, an annual breast MRI exam along with mammogram is recommended if the patient's lifetime risk is 20% or greater. This exam was interpreted at Station ID: [id number]. NOTE: For mammograms, a report in lay terms will be sent to the patient. Approximately 15% of breast malignancies will not be visualized mammographically. In the management of a palpable breast mass, a negative mammogram must not discourage biopsy of a clinically suspicious lesion. Electronically Signed By: Kvng ge/rhea:10/06/2023 16:38:51 letter sent: Normal Exam ACR BI-RADS Category 2: Benign Finding(s) 3342F
== END ==
LOC: MAMMO 09:57
PROVIDERS: PCP Family Medicine; Referring Provider Family Medicine; Visit Provider Family Medicine
DX: Z12.31 Encounter for screening mammogram for malignant neoplasm of breast (principal); R92.333 Mammographic heterogeneous density, bilateral breasts
CPT/HCPCS: 77063; 77067

== ENCOUNTER → 2024-10-14 09:21 | Outpatient (CLI) | payer OTHER, SELFPAY ==
--- NOTE | 2024-10-14 09:23 | DI.MG.S_ITS ---
MM screening mammo BI: 10/14/2024. BI-RADS: 0 CLINICAL: 54-year old female for bilateral screening mammogram. Tyrer-Cuzick lifetime risk of 10.9%. No personal or first-degree family history of breast cancer. PRIOR EXAMS 10/06/2023, 10/02/2022, 09/26/2021, 09/25/2020, 09/23/2019. MAMMOGRAPHY TECHNIQUE: 2D and 3D (tomosynthesis) digital mammographic views obtained, with additional images as needed for full coverage. Current study was also evaluated with a Computer Aided Detection (CAD) system. DENSITY C. The breasts are heterogeneously dense, which may obscure small masses. MAMMOGRAPHY FINDINGS Right: No suspicious mass, asymmetry, microcalcification, or other abnormality seen. No significant change from comparison. Left: MLO only, Central, Middle depth: Asymmetry needing additional imaging evaluation. IMPRESSION: Right * No evidence of malignancy. Left (Asymmetry): MLO only, Central, Middle depth * Incomplete - asymmetry needing additional imaging evaluation. RECOMMENDATIONS Left: MLO only, Central, Middle depth * Further evaluation with diagnostic mammography and diagnostic ultrasound. Ultrasound to be performed only if needed. OVERALL ASSESSMENT CATEGORY BI-RADS-0: Incomplete - Need Additional Imaging Evaluation. ELECTRONICALLY SIGNED: Usha Rodríguez M.D. on 10/15/2024 at 10:37:12 AM PT Interpreting Station ID: [id number]
== END ==
PROVIDERS: PCP Family Medicine; Referring Provider Family Medicine; Visit Provider Family Medicine
DX: Z12.31 Encounter for screening mammogram for malignant neoplasm of breast (principal); R92.333 Mammographic heterogeneous density, bilateral breasts
CPT/HCPCS: 77063; 77067

== ENCOUNTER → 2024-11-16 | Outpatient (CLI) | payer OTHER, SELFPAY ==
--- NOTE | 2024-11-16 13:27 | DI.MG.S_ITS ---
MM diagnostic mammo unilat LT: 11/16/2024. BI-RADS: 3 CLINICAL: 54-year old female for left diagnostic mammogram that is a recall from screening on 10/14/2024. Tyrer-Cuzick lifetime risk of 10.9%. No personal or first-degree family history of breast cancer. PRIOR EXAMS: Comparison is made with relevant prior imaging in PACS including the most recent: Mammogram(s): 10/14/2024. Five Other Exams on 10/06/2023, 10/02/2022, 09/26/2021, 09/25/2020, 09/23/2019. MAMMOGRAPHY TECHNIQUE: 2D and 3D (tomosynthesis) digital mammographic views obtained, with additional images as needed for full coverage. Current study was also evaluated with a Computer Aided Detection (CAD) system. DENSITY Left: C. The breasts are heterogeneously dense, which may obscure small masses. MAMMOGRAPHY FINDINGS Left: MLO only, Central, Middle depth: The previously questioned finding resolves on spot compression views and is not seen on the additional view. IMPRESSION: Left: MLO only, Central, Middle depth * Probably Benign. Left * Screening mammogram finding is likely overlapping normal fibroglandular tissue. RECOMMENDATIONS Left: MLO only, Central, Middle depth * Six month followup with diagnostic mammography and diagnostic ultrasound. Ultrasound to be performed only if needed. COMMENTS: Findings and recommendations were conveyed to the patient during today's evaluation. OVERALL ASSESSMENT CATEGORY BI-RADS-3: Probably Benign. ELECTRONICALLY SIGNED: Hanny Gomez M.D. on 11/18/2024 at 09:47:25 AM PT Interpreting Station ID: [id number]
== END ==
PROVIDERS: PCP Family Medicine; Referring Provider Family Medicine; Visit Provider Physician Assistant
DX: R92.8 Other abnormal and inconclusive findings on diagnostic imaging of breast (principal); R92.332 Mammographic heterogeneous density, left breast
CPT/HCPCS: 77065; G0279

== ENCOUNTER → 2025-06-14 08:44 | Outpatient (CLI) | payer OTHER, SELFPAY ==
--- NOTE | 2025-06-14 08:46 | DI.MG.S_ITS ---
MM diagnostic mammo unilat LT: 06/14/2025. BI-RADS: 2 CLINICAL: 55-year old female for left diagnostic mammogram that is a follow-up to diagnostic mammogram on 11/16/2024. Tyrer-Cuzick lifetime risk of 10.7%. No personal or first-degree family history of breast cancer. PRIOR EXAMS: 11/16/2024, 10/14/2024, 10/06/2023, 10/02/2022, 09/26/2021, 09/25/2020, 09/23/2019. MAMMOGRAPHY TECHNIQUE: 2D and 3D (tomosynthesis) digital mammographic views obtained, with additional images as needed for full coverage. Current study was also evaluated with a Computer Aided Detection (CAD) system. DENSITY Left: C. The breast is heterogeneously dense, which may obscure small masses. MAMMOGRAPHY FINDINGS Left: MLO only, Central: The asymmetry seen on screening mammogram 10/14/2024 did not persist with additional imaging and is consistent with superimposition of normal breast tissue. No other significant finding or change is seen. There are no suspicious masses, calcifications, or other findings in the breast. IMPRESSION: Left * No evidence of malignancy with benign findings. RECOMMENDATIONS Bilateral * Annual screening mammography (due September 2025). COMMENTS: Findings and recommendations were conveyed to the patient during today's evaluation. OVERALL ASSESSMENT CATEGORY BI-RADS-2: Benign. The [employer] recommends annual screening mammography beginning at age 40 for women with average risk of breast cancer. ELECTRONICALLY SIGNED: Usha Rodríguez M.D. on 06/14/2025 at 09:56:46 AM PT Interpreting Station ID: [id number]
== END ==
LOC: MAMMO 08:45
PROVIDERS: PCP Family Medicine; Referring Provider Family Medicine; Visit Provider Family Medicine
DX: R92.8 Other abnormal and inconclusive findings on diagnostic imaging of breast (principal); R92.332 Mammographic heterogeneous density, left breast
CPT/HCPCS: 77065; G0279